=== PATIENT | male | born 1970 | race Caucasian/White ===

== ENCOUNTER 2016-11-14 06:50 | Emergency (ER) | payer OTHER, MEDICARE ==
[~2016-11-14] VITALS: Ht 177.8 cm; Wt 122.5 kg
[~2016-11-14 06:50] MED LIST: BACTRIM DS 8001 TAB PO; CEPHALEXIN500 MG PO; CLONIDINE0.1 MG PO; HYDROCODONE/ACE1 TA1 PO; MEDROL DOSEPAK1 PAC PO; PROAIR HFA0.09 MG/Ac INH; ROBITUSSIN W/CO10 ML PO
[2016-11-14] MEDS ORDERED: AMLODIPINE-BEN1 EAC3 PO (07:41)
[2016-11-14] MEDS ORDERED: METFORMIN HCL500 M4 PO (07:42)
--- NOTE | 2016-11-14 07:50 | RADIOLOGY REPORT ---
EXAMINATION: RADIOGRAPHS OF THE LEFT ANKLE AND LEFT FOOT. CLINICAL INFORMATION: Evaluate for fracture. COMPARISON: No relevant prior imaging is available. TECHNIQUE: 3 views of the left ankle were obtained. 3 views of the left foot were obtained. FINDINGS: There is an acute oblique fracture through the distal left fibular metaphysis and mild associated soft tissue swelling. The medial malleolus is grossly intact. The joint space on the ankle mortise view is symmetric. There is a small joint effusion. Mild spurring at the Achilles insertion on the calcaneal tuberosity. Bones of midfoot and the distal foot are intact. IMPRESSION: There is an acute oblique fracture through the distal left fibular metaphysis consistent with an eversion mechanism of injury. No dislocation.
--- NOTE | 2016-11-14 08:27 | ED GENERAL ADULT ---
See Addendum History of Present Illness General Chief Complaint: Foot or Ankle Injury Stated Complaint: LEFT ANKLE INJURY, FELL ON ICE Source: patient Exam Limitations: no limitations Vital Signs & Intake/Output Vital Signs & Intake/Output Vital Signs Date Time Temp Pulse Resp B/P Pulse O2 O2 Flow FiO2 Ox Delivery Rate 11/14 0854 97.6 98 20 126/84 98 Room Air 11/14 0745 Room Air Room Air 11/14 0702 97.5 104 20 123/83 98 Room Air Room Air Allergies Coded Allergies: NO KNOWN ALLERGIES (11/14/16) Reconcile Medications Albuterol Sulfate (Proair Hfa) 0.09 MG/Actuation XIMENA 1 PUFF INH 4 TIMES/DAY PRN DYSPNEA Amlodipine Besylate/Benazepril (Amlodipine-Benazepril 5-10 MG) 5 MG-10 MG CAPSULE 1 CAP PO DAILY BP (Reported) Ibuprofen 600 MG TABLET 1 TAB PO TID PRN PAIN with food Metformin HCl (Metformin HCl ER) 500 MG TAB.ER.24H 1 TAB PO BID DM (Reported) Oxycodone HCl/Acetaminophen (Percocet 5-325 MG Tablet) 5 MG-325 MG TABLET 1 TAB PO BID PRN PAIN Triage Note: PT TO ED S/P FALL ON ICE ON STAIRS LAST NIGHT, C/O LEFT FOOT AND ANKLE PAIN. PT TOOK ALEVE JUST PRIOR TO COMING TO ED. Triage Nurses Notes Reviewed? yes Onset: Abrupt Duration: day(s): Timing: recent history HPI: 11/14/16 7:30 AM 46-year-old man presents to the emergency department complaining of left ankle pain. The patient states that last night he slipped on the ice and injured his left ankle. He denies other significant complaints. The onset of the symptoms was abrupt, the duration was approximately 12 hours ago, the severity was significant as his symptoms required him to come to the emergency department for care. He denies any significant past medical history. No head trauma. No neck pain. On physical exam he does have swelling and tenderness to the left ankle. There is specific tenderness in the left lateral malleolus. There is no ligament instability. Capillary refill is excellent in the left foot. He has a palpable left dorsalis pedis pulse. There is no ligament instability. The onset of the symptoms was abrupt, the duration is 12 hours, the severity was significant as his symptoms required him to come to the emergency department for care. In the emergency department an x-ray revealed a distal fibula fracture. He was splinted by the PA. He will be given crutches and will follow-up with orthopedist this week. Past History Travel History Traveled to [place] past 21 day No Medical History Any Pertinent Medical History? 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 No Review of Systems Review of Systems Constitutional: Denies: fever. EENTM: Reports: no symptoms. Respiratory: Reports: no symptoms. Cardiovascular: Reports: no symptoms. GI: Reports: no symptoms. Genitourinary: Reports: no symptoms. Musculoskeletal: Reports: joint pain. Skin: Reports: no symptoms. Neurological/Psychological: Reports: no symptoms. Hematologic/Endocrine: Reports: no symptoms. Physical Exam Physical Exam General Appearance: well developed/nourished, alert, awake, anxious, mild distress Head: atraumatic, normal appearance Eyes: Bilateral: normal appearance, PERRL, EOMI. Ears, Nose, Throat: normal pharynx Neck: normal inspection, supple Respiratory: normal breath sounds, chest non-tender, no respiratory distress Cardiovascular: regular rate/rhythm Peripheral Pulses: 4+ tibialis posterior (L) Back: normal range of motion Extremities: swelling, tenderness Neurologic/Psych: no motor/sensory deficits, awake, oriented x 3 Skin: intact, normal color, warm/dry Comments: Physical exam was significant for left ankle swelling no ligament instability. He was placed in a posterior splint by the ED PA. He will be nonweightbearing and follow-up with orthopedics. Core Measures ACS in differential dx? No CVA/TIA Diagnosis: No Severe Sepsis Present: No Septic Shock Present: No Progress Differential Diagnoses I considered the following diagnoses in my evaluation of the patient: [Ankle fracture, ankle sprain, other occult injuries,] Plan of Care: Orders Procedure Date/time Status Durable Medical Equipment 02/14 0838 Active Initial ED EKG: none Departure Departure Disposition: HOME OR SELF CARE Condition: Stable Clinical Impression Primary Impression: Ankle fracture Referrals: SHELBY NGUYEN,WILLIE Wong (PCP/Family) Departure Forms: Customer Survey General Discharge Information Prescriptions: Current Visit Scripts Oxycodone HCl/Acetaminophen (Percocet 5-325 MG Tablet) 1 TAB PO BID PRN PAIN #10 TAB Ibuprofen 1 TAB PO TID PRN PAIN #20 TAB with food Critical Care Note Critical Care Note Critical Care Time: 30-74 min
[2016-11-14] MEDS ORDERED: PERCOCET 5-3251 EACH PO (08:31)
[2016-11-14] MEDS ORDERED: IBUPROFEN600 M1 PO (08:33)
[2016-11-14 08:54] VITALS: BP 126/84
[2017-01-23] MEDS ORDERED: AMLODIPINE-BEN1 EAC3 PO (09:46)
== END 2016-11-14 08:55 ==
LOC: ERH 06:50
DX: S82.402A Unspecified fracture of shaft of left fibula, initial encounter for closed fracture (principal); W00.0XXA Fall on same level due to ice and snow, initial encounter; Y92.9 Unspecified place or not applicable; Y93.9 Activity, unspecified
CPT/HCPCS: 73610-LT; 73630-LT

== ENCOUNTER → 2017-01-24 | Day surgery (SDC) | payer OTHER, MEDICARE ==
[~2017-01-24] VITALS: Ht 177.8 cm; Wt 122.5 kg
[~2017-01-24] MED LIST changes: +AMLODIPINE-BEN1 EAC3 PO; +CEFTRIAXONE2 G2 IV; +DILAUDID2 M1 PO; +IBUPROFEN600 M1 PO; +METFORMIN HCL500 M4 PO; +MS CONTIN15 M2 PO; +OXACILLIN SODIUM2 G1 IV; +PERCOCET 5-3251 EACH PO
--- NOTE | 2017-01-24 15:16 | Operative Report ---
Operative/Inv Procedure Report Surgery Date: 01/24/17 Name of Procedure: Removal of implant deep left ankle Irrigation debridement left ankle Pre-Operative Diagnosis: Retained hardware left ankle Nonhealing wound left ankle Post-Operative Diagnosis: Same Estimated Blood Loss: less than 50ml Surgeon/Heavy Equipment Operator/Paver: DAIJA RODRIGUEZ MD Anesthesia: laryngeal mask airway IV Fluids: See anesthesia record Drains: None Specimens: Bone to pathology and microbiology from the fibula Microbiology: Fibular bone left Tourniquet: 45 minutes Complications: None Condition: Stable Operative Indication: Patient's a 46-year-old male who underwent open reduction internal fixation of his left ankle 3 months ago. He presented to the office with a stitch abscess which was removed a few weeks ago. Continued to have minimal drainage from the area. He was complaining of other suture abscesses spitting out so he was taken to operating room for removal of his implants and irrigation debridement. Operative/Procedure Note Note: Once informed consent was obtained and the correct limb was identified the patient brought to operative room placed on table in the supine position. After administration of general endotracheal anesthesia patient had a thigh tourniquet placed and left lower 70 is prepped and draped usual sterile fashion. To begin the procedures the incision from the previous surgery was used and sharp dissection was carried down to skin and subcutaneous tissue. The fibula was isolated and the plate was identified. All screws removed from the fibular plate and the plate and screws removed passed off as specimen. The bone was then scraped with curet to remove any debris. The bone seemed healthy with no signs of a infection. There were no abscesses present. There was no purulence. All remaining Vicryl sutures removed. The wound was then pulse lavaged. Final curetting was done and bone was passed off as specimen for pathology and microbiology samples. Once you're done irrigating the wound the incision was closed with #2 nylon and 2-0 nylon interrupted sutures. A sterile dressing was applied and the patient was awakened and taken recovery room in stable condition.
== END ==
LOC: STS 02:26 → IIU 07:00 → EDSTATUS 07:00 → STS 07:00
DX: T84.89XA Other specified complication of internal orthopedic prosthetic devices, implants and grafts, initial encounter (principal); E11.9 Type 2 diabetes mellitus without complications; Z79.84 Long term (current) use of oral hypoglycemic drugs; I10 Essential (primary) hypertension; E78.5 Hyperlipidemia, unspecified; F17.200 Nicotine dependence, unspecified, uncomplicated; E66.9 Obesity, unspecified
CPT/HCPCS: 87070; 87075; 87184; 87147; 88307; J0131; J0690; J1100; J1885; J2250; J2405

== ENCOUNTER 2017-01-27 08:51 | Emergency (ER) | payer OTHER, MEDICARE ==
[~2017-01-27] VITALS: Ht 177.8 cm; Wt 122.5 kg
[~2017-01-27 08:51] MED LIST changes: -CEFTRIAXONE2 G2 IV; -DILAUDID2 M1 PO; -MS CONTIN15 M2 PO; -OXACILLIN SODIUM2 G1 IV
[2017-01-27 08:57] VITALS: BP 159/91
--- NOTE | 2017-01-27 09:19 | ED GENERAL ADULT ---
History of Present Illness General Chief Complaint: Suture Removal/Wound Recheck Stated Complaint: WOUND CHECK Source: patient, family, old records Exam Limitations: no limitations Vital Signs & Intake/Output Vital Signs & Intake/Output Vital Signs Date Time Temp Pulse Resp B/P B/P Pulse O2 O2 Flow FiO2 Mean Ox Delivery Rate 01/27 0857 97.0 100 20 159/91 98 Room Air Allergies Coded Allergies: NO KNOWN ALLERGIES (11/14/16) Reconcile Medications Amlodipine Besylate/Benazepril (Amlodipine-Benazepril 5-10 MG) 5 MG-10 MG CAPSULE 1 CAP PO DAILY HTN (Reported) Metformin HCl (Metformin HCl ER) 500 MG TAB.ER.24H 1 TAB PO BID DM (Reported) Oxycodone HCl/Acetaminophen (Percocet 5-325 MG Tablet) 5 MG-325 MG TABLET 1-2 TAB PO Q6H PRN PAIN Triage Note: HAD SURGERY HERE SUNDAY BY DR NGUYEN TO REMOVE PLATE IN ANKLE. STATES HE THINKS HE POPPED A STITCH. NOTICING A LOT OF BLOOD ON BANDAGE WELL PAIN. STATES HE HASN'T SLEPT D/T PAIN. STATES DIDN'T GET RX FOR PAIN MEDS Triage Nurses Notes Reviewed? yes HPI: Patient is a 46 year old male post op from 01/24/17, status post removal of hardware to his left ankle, presents complaining of bleeding from his surgical wound and pain to the area. Patient reports throbbing is severe, worsens with palpation. Patient has been taking Aleve with minimal improvement. Patient was placed on Keflex yesterday for a staph infection from cultures obtained in the OR. Patient was concerned that he pulled the stitches out from where the orthopedic boot was rubbing against the wound. Patient reports that there was redness around the wound prior to surgery, that he believes has been improving. Patient denies fevers, chills, nausea, vomiting. (MARJORIE MILLER,CONNOR) Past History Travel History Traveled to [place] past 21 day No Medical History Any Pertinent Medical History? 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 No (CONNOR WESTON) Review of Systems Review of Systems Constitutional: Reports: malaise (has not slept in 2 days). Denies: chills, fever. EENTM: Reports: no symptoms. Respiratory: Denies: cough, short of breath. Cardiovascular: Denies: chest pain. GI: Denies: nausea, vomiting. Genitourinary: Reports: no symptoms. Musculoskeletal: Reports: joint pain (left ankle). Skin: Reports: see HPI. Neurological/Psychological: Denies: numbness. Hematologic/Endocrine: Reports: bleeding (from surgical wound). Immunologic/Allergic: Denies: splenectomy. (CONNOR WESTON) Physical Exam Physical Exam General Appearance: alert, awake Head: atraumatic, normal appearance Eyes: Bilateral: normal appearance, PERRL, EOMI. Ears, Nose, Throat: hearing grossly normal Neck: normal inspection, full range of motion Respiratory: no respiratory distress Peripheral Pulses: 2+ dorsalis pedis (L) Back: normal range of motion Extremities: 13 cm surgical wound to left lateral distal leg and over the lateral malleolus. Sutures intact, no wound dehiscence. Mild serosanguinous drainage from the wound. 3x3 cm of light erythema extending from the proximal portion of the wound medially. Neurologic/Psych: no motor/sensory deficits, awake, alert, oriented x 3 Skin: see extremities exam Core Measures ACS in differential dx? No CVA/TIA Diagnosis: No Severe Sepsis Present: No Septic Shock Present: No (CONNOR WESTON) Progress Differential Diagnoses I considered the following diagnoses in my evaluation of the patient: wound dehiscence, cellulitis, osteomyelitis, sepsis, post-operative pain, seroma Plan of Care: Orders Procedure Date/time Status FingerStick- Glucose 01/27 0910 Active 0910: Patient declined pain medication on initial exam. Surgical cultures and pathology results reviewed. Growth of MSSA, and path report shows signs of osteomyelitis. [facility], covering for jt Romero to discuss. Discussed with Dr. Shah. 0945: Patient continues to decline pain medication. 55: Discussed with Dr. Sebastian: can have patient continue oral antibiotics and have him follow up in the office early next week. Disposition discussed with patient. Patient comfortable with plan. Patient requesting prescription for pain medication. Patient required detox from pain medication a few years ago due to being on significant doses due to chronic pain. This was discussed with the patient. Will provide patient with presciption for a couple days of pain medication. (CONNOR WESTON) Initial ED EKG: none (CONNOR WESTON) Departure Departure Time of Disposition: 956 Disposition: HOME OR SELF CARE Condition: Stable Clinical Impression Primary Impression: Encounter for wound re-check Secondary Impressions: Post-operative pain Referrals: SHELBY NGUYEN,WILLIE Wong (PCP/Family) JENNIFER NGUYEN,DAIJA Barrera Additional Instructions: Elevate your left foot as much as possible. Change the dressing daily. Continue taking the antibiotics as previously directed. Follow up with Dr. Nguyen on Sunday or Sunday for recheck. Call sunday for appointment. Return to the ER if redness spreading, fevers, or worsening of symptoms. Departure Forms: Customer Survey General Discharge Information Prescriptions: Current Visit Scripts Oxycodone HCl/Acetaminophen (Percocet 5-325 MG Tablet) 1-2 TAB PO Q6H PRN PAIN #12 TAB (CONNOR WESTON) PA/COLD TYPE ARTIST Co-Sign Statement Statement: ED Attending supervision documentation- [] I saw and evaluated the patient. I have also reviewed all the pertinent lab results and diagnostic results. I agree with the findings and the plan of care as documented in the PA's/COLD TYPE ARTIST's documentation. [X] I have reviewed the ED Record and agree with the PA's/COLD TYPE ARTIST's documentation. [] Additions or exceptions (if any) to the PAs/COLD TYPE ARTIST's note and plan are summarized below: [] (ALLIE NGUYEN,GODFREY Rios) Critical Care Note Critical Care Note Critical Care Time: non-applicable (CONNOR WESTON)
[2017-01-27] MEDS ORDERED: PERCOCET 5-3251 EACH PO (09:59)
== END 2017-01-27 10:11 ==
LOC: ERH 08:51
DX: Z48.01 Encounter for change or removal of surgical wound dressing (principal)
CPT/HCPCS: 99281

== ENCOUNTER 2017-01-29 12:00 | Inpatient (IN) | payer OTHER, MEDICARE ==
[~2017-01-29] VITALS: Ht 177.8 cm; Wt 121.6 kg
--- NOTE | 2017-01-29 12:07 | NUR ---
PT SENT IN BY DR. GUZMAN FOR SURGERY TO LEFT LOWER EXT. PT STATES HE HAS A STAFF INFECTION THAT IS NOT HEALING.
--- NOTE | 2017-01-29 12:49 | ED GENERAL ADULT ---
History of Present Illness General Chief Complaint: General Adult Stated Complaint: SENT IN BY ORTHO FOR SURGERY Source: patient, family, old records Exam Limitations: no limitations Vital Signs & Intake/Output Vital Signs & Intake/Output Vital Signs Date Time Temp Pulse Resp B/P B/P Pulse O2 O2 Flow FiO2 Mean Ox Delivery Rate 05 1003 152/90 05/ 0851 98.4 91 18 164/100 97 Room Air 01/30 0843 80 152/80 05/ 0613 98.1 91 18 160/72 97 Room Air 01/30 0113 97.9 90 18 150/90 96 Room Air 01/29 2114 97.5 91 18 134/77 94 Room Air 01/29 1704 98.1 88 18 136/70 98 Room Air 01/29 1542 97.2 82 18 140/66 98 Room Air 01/29 1426 86 20 132/77 95 Room Air 01/29 1208 96.9 92 16 154/79 96 Room Air ED Intake and Output 01/30 0000 01/29 1200 Intake Total 1555 Output Total 450 Balance 1105 Intake, IV 1075 Intake, Oral 480 Output, Urine 450 Patient 270 lb Weight Weight Reported by Patient Measurement Method Allergies Coded Allergies: NO KNOWN ALLERGIES (11/14/16) Reconcile Medications Amlodipine Besylate/Benazepril (Amlodipine-Benazepril 5-10 MG) 5 MG-10 MG CAPSULE 1 CAP PO DAILY HTN (Reported) Metformin HCl (Metformin HCl ER) 500 MG TAB.ER.24H 1 TAB PO BID DM (Reported) Oxycodone HCl/Acetaminophen (Percocet 5-325 MG Tablet) 5 MG-325 MG TABLET 1-2 TAB PO Q6H PRN PAIN Triage Note: PT SENT IN BY DR. GUZMAN FOR SURGERY TO LEFT LOWER EXT. PT STATES HE HAS A STAFF INFECTION THAT IS NOT HEALING. Triage Nurses Notes Reviewed? yes HPI: Patient is a 46 year old male sent in by his orthopedist for worsening infection to his left ankle. Patient had surgery to remove hardware from his left distal fibula last week. Surgical cultures showed a staph infection. Patient has been taking Kelfex since Sunday, but reports infection is worsening. Pain is severe, worsens with palpation. Redness gradually spreading over the past 3-4 days. Patient saw his orthopedist this morning and was referred to the ED for further evaluation and possible surgery. Patient last ate at 1000 today. Positive drainage from the wound. Denies fevers, chills, nausea, vomiting. (CONNOR WESTON) Past History Travel History Traveled to [place] past 21 day No Medical History Any Pertinent Medical History? 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 No (CONNOR WESTON) Review of Systems Review of Systems Constitutional: Denies: chills, fever. EENTM: Reports: no symptoms. Respiratory: Denies: cough, short of breath. Cardiovascular: Denies: chest pain. GI: Denies: abdominal pain, nausea, vomiting. Genitourinary: Reports: no symptoms. Musculoskeletal: Reports: see HPI, back pain (chronic), neck pain (chronic). Skin: Reports: see HPI. Neurological/Psychological: Denies: numbness, paresthesia. Hematologic/Endocrine: Denies: bruising. Immunologic/Allergic: Denies: splenectomy. (CONNOR WESTON) Physical Exam Physical Exam General Appearance: alert, awake Head: atraumatic, normal appearance Eyes: Bilateral: normal appearance. Ears, Nose, Throat: hearing grossly normal Neck: normal inspection, supple, full range of motion Respiratory: normal breath sounds, chest non-tender, no respiratory distress, lungs clear Cardiovascular: regular rate/rhythm Peripheral Pulses: 2+ tibialis posterior (L), 2+ dorsalis pedis (L) Gastrointestinal: soft, non-tender Back: normal inspection, normal range of motion Extremities: 13 cm surgical wound with sutures in place left distal leg laterally. Small amount of serosanguinous drainage and small amount of purulent drainage from the wound. 5-6 cm of erythema extending from the ssuperior portion of the wound with warmth and tenderness. Neurologic/Psych: no motor/sensory deficits, awake, alert, oriented x 3 Skin: see extremities exam Core Measures ACS in differential dx? No CVA/TIA Diagnosis: No Severe Sepsis Present: No Septic Shock Present: No (MARJORIE MILLER,CONONR) Progress Differential Diagnoses I considered the following diagnoses in my evaluation of the patient: Cellulitis , osteomyelitis, retained foreign body Plan of Care: Orders Procedure Date/time Status Consistent Carbohydrate 3 01/30 L Active Consistent Carbohydrate 1 01/30 B Complete Nursing Misc 01/30 0146 Complete Periph. Inserted Central Cath 01/30 UNK Active Consistent Carbohydrate 1 01/29 D Complete NUTRITIONAL CONSULT 01/29 2138 Active Vital Signs 01/29 2126 Active Teach/Educate 01/29 2126 Active Pain Treatment and Response 01/29 2126 Active Nutritional Intake, Monitor 01/29 2126 Active Isolation 01/29 2126 Active Intake & Output 01/29 2126 Active Patient Care Conference 01/29 2126 Active Activity/Ambulation 01/29 2126 Active EXTREMETIES OR SPEC 01/29 1850 Active Pathway - chart 01/29 1410 Active Patient Data 01/29 1410 Active Vital Signs 01/29 1410 Complete Procedure Prep 01/29 1410 Complete Activity/Ambulation 01/29 1410 Complete Code Status 01/29 1410 Active Intake & Output 01/29 1338 Active ED Holding Orders 01/29 1334 Active Vital Signs 01/29 1334 Active Code Status 01/29 1334 Complete Admit to inpatient 01/29 1333 Active FingerStick- Glucose 01/29 1258 Complete BLOOD CULTURE 01/29 1257 Active PARTIAL THROMBOPLASTIN TIME 01/29 1257 Complete PROTHROMBIN TIME 01/29 1257 Complete COMPREHENSIVE METABOLIC PANEL 01/29 1257 Complete CBC WITHOUT DIFFERENTIAL 01/29 1257 Complete EKG 01/29 1257 Active TYPE & SCREEN (NOT X-MATCH) 01/29 1257 Complete PT Evaluate & Treat 01/29 UNK Active Wound Care/Dressing 01/29 UNK Active FingerStick- Glucose 01/29 UNK Complete FingerStick- Glucose 01/29 UNK Active Activity/Ambulation 01/29 UNK Active Diet Message 01/29 UNK Active CASE MANAGEMENT CONSULT 01/29 UNK Active Current Medications Sig/Ban Start time Last Medication Dose Stop Time Status Admin Amlodipine Besylate 5 MG DAILY 01/30 1000 AC 01/30 (Norvasc) 0843 Lisinopril 10 MG DAILY 01/30 1000 CAN (Prinivil) Insulin Human Regular 0 TIDAC/HS 01/30 0800 AC 01/30 (NovoLIN R) 0843 Oxacillin Sodium 2,000 MG Q4 01/29 1800 AC 01/30 (Oxacillin 2000MG 1029 Inj) Sodium Chloride 100 ML (Normal Saline 0.9%) Dextrose/Sodium 1,000 ML 100 MLS/HR 01/29 1415 AC 01/29 Chloride 2301 (D5W-1/2 Normal Saline 1000ML) Hydromorphone HCl 2 MG Q3P PRN 01/29 141 AC 01/30 (Dilaudid) 0844 Hydromorphone HCl 1 MG Q3P PRN 01/29 1415 AC 01/29 (Dilaudid) 2310 Laboratory Tests 01/29/17 1315: Anion Gap 11, Estimated GFR > 60, BUN/Creatinine Ratio 21.3, Glucose 223 H, Calcium 9.1, Total Bilirubin 0.5, AST 18, ALT 33, Alkaline Phosphatase 61, Total Protein 6.1 L, Albumin 3.7, Globulin 2.4, Albumin/Globulin Ratio 1.5, PT 11.3, INR 1.08, APTT 29, CBC w Diff NO MAN DIFF REQ, RBC 5.06, MCV 92.1, MCH 32.2 H, RDW 13.3, MPV 8.4, Gran % 67.9, Lymphocytes % 23.9, Monocytes % 6.3, Eosinophils % 1.6, Basophils % 0.3, Absolute Granulocytes 5.6, Absolute Lymphocytes 2.0, Absolute Monocytes 0.5, Absolute Eosinophils 0.1, Absolute Basophils 0, PUBS MCHC 34.9 Microbiology 01/29 1850 EXTREMITIE: Culture & Sensitivity - RECD 01/29 1850 EXTREMITIE: Gram Stain - RECD 01/29 1850 EXTREMITIE: Gross Specimen Examination - RES STAPH AUREUS 01/29 1850 EXTREMITIE: Gram Stain - RES 01/29 1352 BLOOD: Blood Culture - RECD 01/29 131 BLOOD: Blood Culture - RECD Previous records reviewed. OR cultures showed osteomyelitis. Symptoms worsening despite Keflex. 1320: Discussed with surgical PAUL Rouse: she had been contacted by Dr. Nguyen; patient to be admitted, start on oxacillin IV and plan for patient to go to OR (CONNOR WESTON) Initial ED EKG: normal axis, normal intervals, normal p-waves, normal QRS complex, normal sinus rhythm, no ST T wave changes Prior EKG: unchanged (CONNOR WESTON) Departure Departure Disposition: STILL A PATIENT Condition: Stable Clinical Impression Primary Impression: Osteomyelitis Referrals: WILLIE RYAN MD (PCP/Family) Departure Forms: Customer Survey General Discharge Information Admission Note Spoke With: JENNIFER NGUYEN,DAIJA Barrera Documentation of Exam: Documentation of any treatments & extenuating circumstances including Concerns Regarding Discharge (functional status, medication knowledge or non-compliance, living conditions, etc.) that warrant an admission rather than observation: IV antibiotics, OR intervention. Management of diabetes and patient's comorbid conditions. (CONNOR WESTON) PA/ELEVATOR CONSTRUCTOR HYDRAULIC Co-Sign Statement Statement: ED Attending supervision documentation- [] I saw and evaluated the patient. I have also reviewed all the pertinent lab results and diagnostic results. I agree with the findings and the plan of care as documented in the PA's/ELEVATOR CONSTRUCTOR HYDRAULIC's documentation. [X] I have reviewed the ED Record and agree with the PA's/ELEVATOR CONSTRUCTOR HYDRAULIC's documentation. [] Additions or exceptions (if any) to the PAs/ELEVATOR CONSTRUCTOR HYDRAULIC's note and plan are summarized below: [] (ANNETTE LAGOS DO) Critical Care Note Critical Care Note Critical Care Time: non-applicable (CONNOR WESTON)
--- NOTE | 2017-01-29 13:14 | NUR ---
LABS DRAWN AND SENT BY THIS MST BLUE, SST X 2, LAV X 2, PINK, BALTAZAR
--- NOTE | 2017-01-29 13:28 | NUR ---
ASSUMED CARE, PT AWAKE ALERT AND ORIENTED, STATES THAT 2 MONTHS AGO HE HAD SURGERY ON HIS LLE AFTER HE FELL ON ICE, STATES THAT HE JUST HAS BEEN HAVING PROBLEMS SINCE. PT COMPLAINS OF FREQUENT INFECTIONS. PT WAS EVALUATED BY HIS ORTHOPEDIC DR RODRIGUEZ AND TOLD TO COME TO ER AND THAT HE WILL GO TO THE OR AROUND 1800. IV PLACED AND FLUIDS INFUSING AT 125ML/HR, AND MEDICATED WITH DILAUDID FOR 8/10 LLE PAIN. PT AWARE THAT AFTER HIS PAIN IS UNDER CONTROL WE WILL ASSIST HIM TO CHANGE INTO EDWARD SO THAT HE IS READY WHEN THEY CALL FOR HIM TO GO TO THE OR. PT IS OK WITH THIS. LIGHTS DIMMED FOR COMFORT AND LLE ELEVATED
[2017-01-29 13:30] LABS: ABSOLUTE BASOPHIL COUNT 0 /CUMM (0.0-0.2); ABSOLUTE EOSINOPHIL COUNT 0.1 /CUMM (0.0-0.7); ABSOLUTE GRANULOCYTE CT 5.6 /CUMM (1.4-6.5); ABSOLUTE MONOCYTE COUNT 0.5 /CUMM (0.10-0.60); BASOPHIL % 0.3 % (0.0-2.0); EOSINOPHIL % 1.6 % (0-5); GRANULOCYTE % 67.9 % (42.2-75.2); HEMATOCRIT 46.6 % (42-52); MEAN CORPUSCULAR HGB 32.2 PG (27.0-31.0); MEAN CORPUSCULAR HGB CONC 34.9 G/DL (33.0-37.0); MEAN CORPUSCULAR VOLUME 92.1 FL (80.0-94.0); MEAN PLATELET VOLUME 8.4 FL (7.4-10.4); PLATELET COUNT 165 /CUMM (130-400); RBC DISTRIBUTION WIDTH 13.3 % (11.5-14.5); RED BLOOD CELL CT 5.06 /CUMM (4.70-6.10); WHITE BLOOD CELL COUNT 8.2 /CUMM (4.8-10.8)
[2017-01-29 13:43] LABS: PT 11.3 SEC (9.4-12.5); PTT 29 SEC (25-37)
--- NOTE | 2017-01-29 13:55 | NUR ---
BC X 2 DRAWN AND SENT PRIOR TO ABT INFUSING
--- NOTE | 2017-01-29 14:03 | NUR ---
PTS SUHA WOULD LIKE TO BE CALLED WITH ANY UPDATES [phone]
--- NOTE | 2017-01-29 14:14 | Admission Core Measures ---
Admission Lab Results I reviewed the following labs: Laboratory Tests 01/29 1315 Chemistry Sodium (137 - 145 mmol/L) 138 Potassium (3.5 - 5.1 mmol/L) 4.3 Chloride (98 - 107 mmol/L) 103 Carbon Dioxide (22 - 30 mmol/L) 25 Anion Gap (5 - 16) 11 BUN (9 - 20 mg/dL) 17 Creatinine (0.7 - 1.2 mg/dL) 0.8 Estimated GFR (>60 ml/min) > 60 BUN/Creatinine Ratio (7 - 25 %) 21.3 Glucose (65 - 99 mg/dL) 223 H Calcium (8.4 - 10.2 mg/dL) 9.1 Total Bilirubin (0.2 - 1.3 mg/dL) 0.5 AST (17 - 59 U/L) 18 ALT (21 - 72 U/L) 33 Alkaline Phosphatase (< 127 U/L) 61 Total Protein (6.3 - 8.2 g/dL) 6.1 L Albumin (3.5 - 5.0 g/dL) 3.7 Globulin (1.9 - 4.2 gm/dL) 2.4 Albumin/Globulin Ratio (1.1 - 2.2 %) 1.5 Coagulation PT (9.4 - 12.5 SEC) 11.3 INR (0.90 - 1.17) 1.08 APTT (25 - 37 SEC) 29 Hematology CBC w Diff NO MAN DIFF REQ WBC (4.8 - 10.8 /CUMM) 8.2 RBC (4.70 - 6.10 /CUMM) 5.06 Hgb (14.0 - 18.0 G/DL) 16.3 Hct (42 - 52 %) 46.6 MCV (80.0 - 94.0 FL) 92.1 MCH (27.0 - 31.0 PG) 32.2 H RDW (11.5 - 14.5 %) 13.3 Plt Count (130 - 400 /CUMM) 165 MPV (7.4 - 10.4 FL) 8.4 Gran % (42.2 - 75.2 %) 67.9 Lymphocytes % (20.5 - 51.1 %) 23.9 Monocytes % (1.7 - 9.3 %) 6.3 Eosinophils % (0 - 5 %) 1.6 Basophils % (0.0 - 2.0 %) 0.3 Absolute Granulocytes (1.4 - 6.5 /CUMM) 5.6 Absolute Lymphocytes (1.2 - 3.4 /CUMM) 2.0 Absolute Monocytes (0.10 - 0.60 /CUMM) 0.5 Absolute Eosinophils (0.0 - 0.7 /CUMM) 0.1 Absolute Basophils (0.0 - 0.2 /CUMM) 0 PUBS MCHC (33.0 - 37.0 G/DL) 34.9 Admission Meds I reviewed the following Meds: Current Medications Sig/Ban Start time Last Medication Dose Stop Time Status Admin Dextrose/Sodium 1,000 ML 100 MLS/HR 01/29 1415 UNVr Chloride (D5W-1/2 Normal Saline 1000ML) Hydromorphone HCl 2 MG Q3P PRN 01/29 1415 UNVr (Dilaudid) Hydromorphone HCl 1 MG Q3P PRN 01/29 1415 UNVr (Dilaudid) Oxacillin Sodium 2,000 MG Q4 01/29 1800 UNVr (Oxacillin 2000MG Inj) Sodium Chloride 100 ML (Normal Saline 0.9%) Sodium Chloride 1,000 ML .Q8H / 1300 AC 05/ (Normal Saline 0.9%) 1318 Acute Coronary Syndrome Inclusion Criteria ACS Diagnosis No Inpatient Core Measures LDL Reminder: If No, please order W/I first 24hr of stay Congestive Heart Failure Inclusion Criteria CHF Diagnosis No Cerebrovascular accident Inclusion Criteria CVA/TIA Diagnosis No Inpatient Core Measures Bedside Swallow Eval Reminder: If BSE failed, place ST order Antithrombotic Reminder: Order Antithrombotic Medication by end of day 2 Antithrombotic Reminder: Document Reason Antithrombotic Not ordered by end of day 2 AFIB/Flutter Reminder: If Present, add to problem list AFIB/Flutter Reminder: Order Anticoag Medication for pts with AFIB/Flutter Atherosclerosis Reminder: If Present, add to problem list LDL Reminder: If No, please order W/I first 24hr of stay PT Order Reminder: If No, please order Venous thromboembolism Inpatient Core Measures VTE Risk Factors: Age > 40, [facility] prophylaxis d/t Surgical procedure LE No VTE Pharm Prophylaxis d/t Surgical contraindication (PRE OP) Inclusion Criteria - Per Current guidelines, there needs to be overlap - treatment for the first 5 days of Warfarin therapy. - Parenteral Anticoagulation (IV or SC) needs to be - given along with Warfarin therapy. VTE Diagnosis No VTE Type NONE VTE Confirmed by (Test) NONE Problem List As ranked by this Provider includes Assessment & Plan 1. Non-healing wound of lower extremity HOME MEDS Home Med List Amlodipine Besylate/Benazepril (Amlodipine-Benazepril 5-10 MG) 5 MG-10 MG CAPSULE 1 CAP PO DAILY HTN (Reported) Metformin HCl (Metformin HCl ER) 500 MG TAB.ER.24H 1 TAB PO BID DM (Reported) Oxycodone HCl/Acetaminophen (Percocet 5-325 MG Tablet) 5 MG-325 MG TABLET 1-2 TAB PO Q6H PRN PAIN
--- NOTE | 2017-01-29 14:22 | NUR ---
OXACILLING 2 GRAMS INFUSING AT THIS TIME, PT SITTING UP USING URINAL AT THIS TIME. STATES THAT PAIN IS 2/10 TO LLE,
--- NOTE | 2017-01-29 14:28 | History & Physical Pre-Op ---
See Addendum General Information and HPI Source of Information: patient Exam Limitations: no limitations History of Present Illness: 46yo male who had hardware placed in his left ankle in November 2016 secondary to a fracture. Per the patient, the wound never really healed, was open and draining for a while. He has been seen by orthopedic surgery since surgery and on 01/24 was brought to the OR for I&D and hardware removal/washout. At that time, it was noted that the wound looked clean without any purulence. Pt states that over the past two days his pain has increased significantly and he has had increased drainage. He contacted Dr Nguyen who evaluated the wound and felt that he should present to the ED for admission and a further washout in the OR today. Currently pt has no complaints. He last ate at 1000. Allergies/Medications Allergies: Coded Allergies: NO KNOWN ALLERGIES (11/14/16) Home Med list Amlodipine Besylate/Benazepril (Amlodipine-Benazepril 5-10 MG) 5 MG-10 MG CAPSULE 1 CAP PO DAILY HTN (Reported) Metformin HCl (Metformin HCl ER) 500 MG TAB.ER.24H 1 TAB PO BID DM (Reported) Oxycodone HCl/Acetaminophen (Percocet 5-325 MG Tablet) 5 MG-325 MG TABLET 1-2 TAB PO Q6H PRN PAIN Past History Medical History Neurological: NONE EENT: NONE Cardiovascular: hypertension Respiratory: bronchitis Gastrointestinal: NONE Hepatic: NONE Renal: NONE Musculoskeletal: chronic back pain Psychiatric: NONE Endocrine: diabetes Blood Disorders: NONE 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 IADLs Independent: shopping, housework, finances, food prep, telephone, transportation , medication admin. Review of Systems Review of Systems Constitutional: Reports: see HPI. Musculoskeletal: Reports: see HPI. Exam & Diagnostic Data Last 24 Hrs of Vital Signs/I&O Vital Signs Date Time Temp Pulse Resp B/P B/P Pulse O2 O2 Flow FiO2 Mean Ox Delivery Rate 01/29 1208 96.9 92 16 154/79 96 Room Air Intake & Output 01/29 1600 01/29 0800 01/29 0000 Intake Total 1000 Output Total Balance 1000 Intake, IV 1000 Patient 270 lb Weight Weight Reported by Patient Measurement Method Physical Exam: Afebrile, VSS General: alert and oriented times three, frustrated Chest: clear anteriorly bilaterally Abd: soft, good bs Ext: LLE ankle dressed in kerlex - just placed in DR Lloyd office, positive sensate, FROM of toes Assessment/Plan Assessment/Plan: 46yo male with non healing L ankle wound - now pod5 from hardware removal/ washout with increased pain and drainage Plan for OR once available pain management npo/ivf oxacillin ordered As Ranked By This Provider Problem List: 1. Non-healing wound of lower extremity
--- NOTE | 2017-01-29 15:41 | NUR ---
PT AWAKE AND ALERT, PROVIDED WITH A PILLOW AND LIGHTS DIMMED FOR COMFORT, PT AWARE THAT HE WILL NOT BE GOING TO OR INTILL AFTER 1800 AND THAT HE MIGHT GO TO THE FLOOR FIRST
--- NOTE | 2017-01-29 15:45 | NUR ---
PT TO ROOM 206 BED 1
--- NOTE | 2017-01-29 16:20 | NUR ---
FLOOR TO CALL BACK FOR REPORT
--- NOTE | 2017-01-29 16:37 | NUR ---
REPORT CALLED TO FLOOR AND TRANSPORT CALLED. PT COMPLAINED OF 10/10 LLE PAIN AT THIS TIME . PT MEDICATED WITH PRN DILAUDID 2 MG IV PER ORDER. NURSE ON FLOOR AWARE THAT PT WANTS TO WAIT TO CHANGE AT THIS TIME. PREFERS TO STAY IN HIS SHORTS AN T-SHIRT.
--- NOTE | 2017-01-29 17:03 | NUR ---
TRANSPORT CALLED AND STATED THAT THE OR CALLED THEM AND THEY WANT HIM AT 1745 AND THAT THEY WILL COME AND TAKE HIM FROM HERE TO THE OR. PT IS DOING PRE OP SCRUB AT THIS TIME.
[2017-01-29 21:14] VITALS: BP 134/77
--- NOTE | 2017-01-30 00:04 | PN- Orthopedic ---
Subjective Subjective: POSTOP CHECK pain controlled with dilaudid, no oob yet, no cp/sob/n/v Objective Vital Signs and I&Os Vital Signs Date Time Temp Pulse Resp B/P B/P Pulse O2 O2 Flow FiO2 Mean Ox Delivery Rate 01/29 2114 97.5 91 18 134/77 94 Room Air 01/29 1704 98.1 88 18 136/70 98 Room Air 01/29 1542 97.2 82 18 140/66 98 Room Air 01/29 1426 86 20 132/77 95 Room Air 01/29 1208 96.9 92 16 154/79 96 Room Air Intake & Output 01/30 0800 01/30 0000 01/29 1600 01/29 0800 01/29 0000 01/28 1600 Intake Total 1000 Output Total 200 Balance -200 1000 Intake, IV 1000 Output, Urine 200 Patient 270 lb 270 lb Weight Weight Reported by Patient Reported by Patient Measurement Method Physical Exam: gen: nad card: s1s2 rrr pulm: ctab abd: obese soft nt ext: LLE: wvac in place, palp DP, calf soft nt, gross motor/sensate intact, dressing cdi Assessment/Plan Assessment/Plan POD0 sp washout left ankle, stable. prn pain meds oob as tolerated, NWB LLE wv to low suction picc in am, oxacillin per ID (Dr. Nguyen to contact ID in am) will dw attending Core Measures/Miscellaneous Venous Thromboembolism VTE Risk Factors: Age > 40, Surgery VTE Contraindications: No Contraindications VTE Diagnosis: No VTE Type: NONE VTE Confirmed by (Test): NONE Beta Raquel Is Beta Raquel a Home Med? No Antibiotics Is Patient on Antibiotics? Yes
[2017-01-30 01:13] VITALS: BP 150/90
--- NOTE | 2017-01-30 03:20 | NUR ---
LATE ENTRY FOR 01/29/172114 PT ARRIVED TO RM 206 FROM PACU. AOX3. IVF. JG DSG TO LLE WITH WOUND VAC IN PLACE. PT SETTLED INTO ROOM/SURROUNDINGS. CALL BARON IN REACH.
[2017-01-30 06:13] VITALS: BP 160/72
--- NOTE | 2017-01-30 07:12 | PN- Orthopedic ---
See Addendum Subjective Subjective: The patient was seen this morning postoperatively day 1. He reports his pain is under adequate control has no other complaints at the current time. Objective Vital Signs and I&Os Vital Signs Date Time Temp Pulse Resp B/P B/P Pulse O2 O2 Flow FiO2 Mean Ox Delivery Rate 01/30 0613 98.1 91 18 160/72 97 Room Air 01/30 0113 97.9 90 18 150/90 96 Room Air 01/29 2114 97.5 91 18 134/77 94 Room Air 01/29 1704 98.1 88 18 136/70 98 Room Air 01/29 1542 97.2 82 18 140/66 98 Room Air 01/29 1426 86 20 132/77 95 Room Air 01/29 1208 96.9 92 16 154/79 96 Room Air Intake & Output 01/30 0800 01/30 0000 01/29 1600 01/29 0800 01/29 0000 01/28 1600 Intake Total 555 1000 Output Total 500 700 Balance -500 -145 1000 Intake, IV 75 1000 Intake, Oral 480 Output, Urine 500 700 Patient 270 lb 270 lb Weight Weight Reported by Patient Reported by Patient Measurement Method Physical Exam: Gen.: Alert and in obvious distress Skin: Warm and dry Extremities: Bilateral lower extremities are warm without calf tenderness. Gross motor and sensory are intact. Left lower extremity with surgical dressing is clean, dry, and intact. There is a VAC dressing in place holding suction with serosanguineous drainage in the canister Assessment/Plan Assessment/Plan Assessment: 46-year-old male status post I&D/washout of infected left ankle wound postoperative day 1 . The patient is progressing as expected and his pain is under relatively good control. Plan: Out of bed and ambulate with physical therapy patient is nonweightbearing left lower extremity Keep surgical dressing intact with VAC suction Follow-up morning laboratory studies and final or cultures Continue IV antibiotics and follow-up ID recommendations Will order a PICC line to be placed by interventional radiology later today GI and DVT prophylaxis Continue current pain regiment Elevated left lower extremity rest Core Measures/Miscellaneous Venous Thromboembolism VTE Risk Factors: Age > 40, Surgery VTE Contraindications: No Contraindications VTE Diagnosis: No VTE Type: NONE VTE Confirmed by (Test): NONE Beta Raquel Is Beta Raquel a Home Med? No Antibiotics Is Patient on Antibiotics? Yes If Yes: infection
--- NOTE | 2017-01-30 07:44 | Operative Report ---
Operative/Inv Procedure Report Surgery Date: 01/29/17 Name of Procedure: Irrigation and debridement left ankle Application of wound VAC Pre-Operative Diagnosis: Osteomyelitis left ankle Post-Operative Diagnosis: Same Estimated Blood Loss: less than 50ml Surgeon/Emergency Vehicle Technician: JENNIFER NGUYEN,DAIJA Barrera Anesthesia: laryngeal mask airway IV Fluids: See anesthesia record Implants: None Specimens: Soft tissue to microbiology Microbiology: Soft tissue left ankle Complications: None Condition: Table Operative Indication: Patient is a 46-year-old male who underwent irrigation debridement with removal of hardware last Sunday in the operating room. He returned to the office today with complaints of increased pain and drainage from his incision. He was indicated for repeat irrigation debridement of the wound. Informed consent was obtained. Operative/Procedure Note Note: The patient was taken to the operating room placed on table supine position. After administration of general endotracheal anesthesia the patient's left leg was prepped and draped using sterile fashion. To begin the procedure the previous surgical incision was opened and sutures removed. The soft tissue and bone were debrided sharply with curettes and all devitalized tissue was excised. Stable to get bleeding soft tissue and bone by scraping the tissue with the curettes. There are no obvious tracts or pockets of purulence. Once I had adequate debrided the devitalized tissue the wound was pulse lavaged with 3 L of saline. The skin margins were then excised and once we were happy with the debridement a wound VAC was applied to the wound. Once the wound VAC had been sealed and tested the patient was awakened from anesthesia and taken recovery in stable condition.
[2017-01-30 08:51] VITALS: BP 164/100
--- NOTE | 2017-01-30 09:08 | NUR ---
NURSING NOTE: BP CURRENTLY 164/100, PT DENIES TAKING LISINOPRIL AT HOME AND DOESNT WANT TO START UNTIL HE KNOWS WHY ITS ORDERED. KASIA MILLER AWARE, PT JUST RECIVED IV PAIN MEDS AND AMLODIPINE; WILL RECHECK BP IN 1 HOUR. CONT TO MONIOTR.
[2017-01-30 10:03] VITALS: BP 152/90
--- NOTE | 2017-01-30 10:03 | NUR ---
NURSING NOTE: BP 152/90, PA AWARE, NO FURTHER ORDERS AT THIS TIME
--- NOTE | 2017-01-30 10:16 | Cons- Infect Disease ---
General Information and HPI Consulting Request Date of Consult: 01/30/17 Requested By: DAIJA RODRIGUEZ MD Reason for Consult: Surgical site infection status post left ankle ORIF Source of Information: patient History of Present Illness: This is a 46-year-old man with a history of diabetes, status post left ankle ORIF 2 and 1/2 months prior to admission after developing an acute left fibular fracture following trauma, with persistent pain and intermittent drainage since the surgery, given a course of antibiotics with some improvement, but with persistent pain, status post removal of the hardware with irrigation and debridement 5 days prior to admission, with Cefazolin prophylaxis, begun on antibiotics 3 days prior to admission after the OR cultures were positive for Staph aureus, admitted on January 29 for further debridement of the bone because of persistent pain and bloody drainage. On admission he was afebrile. Laboratory data revealed a white blood cell count of 8000, BUN/creatinine 17 and 0.8, glucose 223, with normal liver enzymes, coags normal. He was begun on Oxacillin preoperatively and continued on this postoperatively. He has remained afebrile since admission. At present he does report pain in the left ankle. Allergies/Medications Allergies: Coded Allergies: NO KNOWN ALLERGIES (11/14/16) Home Med List: Amlodipine Besylate/Benazepril (Amlodipine-Benazepril 5-10 MG) 5 MG-10 MG CAPSULE 1 CAP PO DAILY HTN (Reported) Metformin HCl (Metformin HCl ER) 500 MG TAB.ER.24H 1 TAB PO BID DM (Reported) Oxycodone HCl/Acetaminophen (Percocet 5-325 MG Tablet) 5 MG-325 MG TABLET 1-2 TAB PO Q6H PRN PAIN Past History Travel History Traveled to [place] past 21 day No Medical History Blood Transfusion Hx: No Neurological: NONE EENT: NONE Cardiovascular: hypertension, hyperlipidemia Respiratory: bronchitis Gastrointestinal: NONE Hepatic: NONE Renal: NONE Musculoskeletal: chronic back pain Psychiatric: NONE Endocrine: diabetes Blood Disorders: NONE 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 Home Services at Home: None Smoking Status: Current Everyday Smoker ETOH Use: denies use Illicit Drug Use: denies illicit drug use Functional Ability ADLs Independent: dressing, eating, toileting, bathing. IADLs Independent: shopping, housework, finances, food prep, telephone, transportation , medication admin. Review of Systems Review of Systems Constitutional: Denies: chills, fever. All Other Systems: Reviewed and Negative Exam & Diagnostic Data Last 24 Hrs of Vital Signs/I&O Vital Signs Date Time Temp Pulse Resp B/P B/P Pulse O2 O2 Flow FiO2 Mean Ox Delivery Rate 01/30 1003 152/90 01/30 0851 98.4 91 18 164/100 97 Room Air 01/30 0843 80 152/80 01/30 0613 98.1 91 18 160/72 97 Room Air 01/30 0113 97.9 90 18 150/90 96 Room Air 01/29 2114 97.5 91 18 134/77 94 Room Air 01/29 1704 98.1 88 18 136/70 98 Room Air 01/29 1542 97.2 82 18 140/66 98 Room Air 01/29 1426 86 20 132/77 95 Room Air 01/29 1208 96.9 92 16 154/79 96 Room Air Intake & Output 01/30 1600 / 0800 01/30 0000 Intake Total 900 555 Output Total 2400 700 Balance -1500 -145 Intake, IV 900 75 Intake, Oral 480 Output, Urine 2400 700 Patient 268 lb 270 lb Weight Weight Reported by Patient Measurement Method Physical Exam Other Physical Findings: He is awake and alert in no acute distress. He is afebrile. Skin reveals no rash. HEENT exam is negative. Neck is supple with no adenopathy. Lungs are clear. Heart regular rhythm with no murmur. Abdomen is soft, nontender with positive bowel sounds. Back no CVA tenderness. Extremities left ankle dressing intact with wound VAC in place. Neuro is without focality. Last 24 Hours of Lab Results: Laboratory Tests 01/29 1315 Chemistry Sodium (137 - 145 mmol/L) 138 Potassium (3.5 - 5.1 mmol/L) 4.3 Chloride (98 - 107 mmol/L) 103 Carbon Dioxide (22 - 30 mmol/L) 25 Anion Gap (5 - 16) 11 BUN (9 - 20 mg/dL) 17 Creatinine (0.7 - 1.2 mg/dL) 0.8 Estimated GFR (>60 ml/min) > 60 BUN/Creatinine Ratio (7 - 25 %) 21.3 Glucose (65 - 99 mg/dL) 223 H Calcium (8.4 - 10.2 mg/dL) 9.1 Total Bilirubin (0.2 - 1.3 mg/dL) 0.5 AST (17 - 59 U/L) 18 ALT (21 - 72 U/L) 33 Alkaline Phosphatase (< 127 U/L) 61 Total Protein (6.3 - 8.2 g/dL) 6.1 L Albumin (3.5 - 5.0 g/dL) 3.7 Globulin (1.9 - 4.2 gm/dL) 2.4 Albumin/Globulin Ratio (1.1 - 2.2 %) 1.5 Coagulation PT (9.4 - 12.5 SEC) 11.3 INR (0.90 - 1.17) 1.08 APTT (25 - 37 SEC) 29 Hematology CBC w Diff NO MAN DIFF REQ WBC (4.8 - 10.8 /CUMM) 8.2 RBC (4.70 - 6.10 /CUMM) 5.06 Hgb (14.0 - 18.0 G/DL) 16.3 Hct (42 - 52 %) 46.6 MCV (80.0 - 94.0 FL) 92.1 MCH (27.0 - 31.0 PG) 32.2 H RDW (11.5 - 14.5 %) 13.3 Plt Count (130 - 400 /CUMM) 165 MPV (7.4 - 10.4 FL) 8.4 Gran % (42.2 - 75.2 %) 67.9 Lymphocytes % (20.5 - 51.1 %) 23.9 Monocytes % (1.7 - 9.3 %) 6.3 Eosinophils % (0 - 5 %) 1.6 Basophils % (0.0 - 2.0 %) 0.3 Absolute Granulocytes (1.4 - 6.5 /CUMM) 5.6 Absolute Lymphocytes (1.2 - 3.4 /CUMM) 2.0 Absolute Monocytes (0.10 - 0.60 /CUMM) 0.5 Absolute Eosinophils (0.0 - 0.7 /CUMM) 0.1 Absolute Basophils (0.0 - 0.2 /CUMM) 0 PUBS MCHC (33.0 - 37.0 G/DL) 34.9 Last 24 Hours of Rashad Results: OR culture left fibula January 24 positive for Staph aureus sensitive to Oxacillin Blood cultures January 29 negative OR culture left ankle wound January 29 positive for probable Staph aureus Assessment/Plan Assessment/Plan Impression: This is a 46-year-old man with diabetes status post left ankle ORIF 2-1/2 months prior to admission after trauma status post removal of the hardware 5 days prior to admission because of persistent pain and drainage from the wound, with Staph aureus isolated from the OR culture, admitted on January 29 because of persistent pain and bloody drainage for further debridement in the OR, which was performed on the day of admission. He will require a four-week course of IV antibiotics for the Staph aureus surgical site infection. Suggestion: 1. Would obtain a baseline ESR and follow weekly 2. Proceed with placement of a PICC 3. Continue Oxacillin 2 g IV every 4 hours to plan on a four-week course (until February 26) Consult Acknowledgment - Thank you for your consult request.
--- NOTE | 2017-01-30 12:55 | NUR ---
NURSING NOTE: SINGLE LUMEN PICC PLACED TO R ARM BY LOGAN NIGHT MANAGER. PINK WRISTBAND AND DO NOT USE R ARM SIGN ABOVE BED. PCXR DONE TO CONFIRM PLACEMENT, RESULTS PENDING, WILL DC PERIPHERAL IV WHEN RESULTS CONFIRM PLACEMENT, PT DELONTE WELL.
[2017-01-30 13:00] VITALS: BP 160/60
--- NOTE | 2017-01-30 13:46 | RADIOLOGY REPORT ---
EXAMINATION: XR PORTABLE CHEST CLINICAL INFORMATION: PICC line placement. COMPARISON: 12/06/2015. TECHNIQUE: Portable frontal view of the chest was obtained. FINDINGS: The new right PICC line terminates in the distal SVC, near the cavoatrial junction. The lungs appear clear. IMPRESSION: Right PICC line terminates in the SVC near the cavoatrial junction.
--- NOTE | 2017-01-30 14:46 | NUR ---
PHYSICAL THERAPY- CONSULT RECEIVED, CHART REVIEWED. ATTEMPTED TO SEE PT x3 THIS AM, IN W/ OUTSIDE SALES REPRESENTATIVE FOR PICC PLACEMENT. IN PM, PT JUST RETURNED BACK TO BED. WILL FOLLOW APPROPRIATE IN AM.
--- NOTE | 2017-01-30 15:21 | Surgical Discharge Summary ---
See Addendum Visit Information Visit Dates Admission Date: 01/29/17 Discharge Date: 01/31/17 History of Present Illness Chief Complaint: 46yo male who had hardware placed in his left ankle in November 2016 secondary to a fracture. Per the patient, the wound never really healed, was open and draining for a while. He has been seen by orthopedic surgery since surgery and on 01/24 was brought to the OR for I&D and hardware removal/washout. At that time, it was noted that the wound looked clean without any purulence. He then presented to the emergency room after evaluation by orthopedics on 01/29 due to worsening concerns of infection at the ankle wound. 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 Home Who Do You Live With? Family Services at Home: None What is Your Primary Language? Bahamian ETOH Use: denies use [facility] Course Course Attending Physician: JENNIFER NGUYEN,DAIJA Barrera Primary Care Physician: SHELBY NGUYEN,WILLIE Wong Hospital Course: The patient had a irrigation and debridement of the area and placement of wound VAC on 01/[address] Nguyen. He also had a PICC line placed and was evaluated by infectious disease in which they recommended long-term IV antibiotics. His culture grew out Staphylococcus aureus. He is controlled on pain medication, afebrile, vital signs are stable. Wound VAC is placed the left ankle. Complications: None Allergies: Coded Allergies: NO KNOWN ALLERGIES (11/14/16) Disposition Summary Disposition Principal Diagnosis: Hardware infection, left ankle Additional Diagnosis: Status post irrigation and debridement and wound VAC placement left ankle Discharge Disposition: home health services (wound VAC change start Sunday) Discharge Instructions General Discharge Information Code Status: Full Code Patient's Diet: Regular Patient's Activity: Weightbearing as tolerated left lower extremity Follow-Up Instructions/Appts: Follow-up with orthopedist in one week, continue wound VAC, pain medication as needed, continue antibiotics as directed, elevate the leg as much as possible. Medications at Discharge Discharge Medications: Stop taking the following medications: Oxycodone HCl/Acetaminophen (Percocet 5-325 MG Tablet) 5 MG-325 MG TABLET ORAL Q6H as needed for PAIN Qty = 12 Continue taking these medications: Metformin HCl (Metformin HCl ER) 500 MG TAB.ER.24H 1 Tablet ORAL TWICE DAILY Qty = 60 Comments: NOT GIVEN IN HOSPITAL Amlodipine Besylate/Benazepril (Amlodipine-Benazepril 5-10 MG) 5 MG-10 MG CAPSULE 1 Capsule ORAL DAILY Comments: Last Taken: 01/31/17 Time: 0745AM Start taking the following new medications: Hydromorphone HCl (Dilaudid) 2 MG TABLET 1-2 Tablet ORAL EVERY 4-6 HOURS as needed for PAIN Qty = 30 No Refills Comments: PERCOCET GIVEN IN HOSPITAL; LAST DOSE 01/31/17 @1100AM Morphine Sulfate (Ms Contin) 15 MG TABLET.ER 1 Tablet ORAL TWICE DAILY Qty = 15 No Refills Comments: NOT GIVEN IN HOSPITAL Ceftriaxone Sodium (Ceftriaxone) 2 GRAM VIAL 1 VIAL INTRAVEN DAILY Qty = 26 No Refills Comments: Last Taken: 01/31/17 Time: 1030AM
--- NOTE | 2017-01-30 15:24 | Patient Discharge Instructions ---
See Addendum Discharge Instructions General Discharge Information You were seen/treated for: Left ankle wound infection You had these procedures: Irrigation and debridement and wound VAC placement left ankle Watch for these problems: Worsening signs of infection such as redness, swelling, pain, fever, flulike illness Do not soak the wound: Yes No bath, but you may shower: Yes Special Instructions: Weightbearing as tolerated left lower leg Wound VAC changes 2 times per week starting on Sunday Elevate the leg as much as possible Take pain medication as needed IV antibiotics through PICC line as directed weekly ESR Diet Continue normal diet: Yes Activity Full Activity/No Limits: No Activity Self Limited: Yes Activity Limited to: Weight bear as tolerated Acute Coronary Syndrome Inclusion Criteria At DC or during hospital stay patient has or had the following: ACS DIAGNOSIS No Discharge Core Measures Meds if any: Prescribed or Continued at Discharge Meds if any: NOT Prescribed or Continued at Discharge Congestive Heart Failure Inclusion Criteria At DC or during hospital stay patient has or had the following: CHF DIAGNOSIS No Discharge Core Measures Meds if any: Prescribed or Continued at Discharge Meds if any: NOT Prescribed or Continued at Discharge Cerebrovascular accident Inclusion Criteria At DC or during hospital stay patient has or had the following: CVA/TIA Diagnosis No Discharge Core Measures Meds if any: Prescribed or Continued at Discharge Meds if any: NOT Prescribed or Continued at Discharge Venous thromboembolism Inclusion Criteria VTE Diagnosis No VTE Type NONE VTE Confirmed by (Test) NONE Discharge Core Measures - Per Current guidelines, there needs to be overlap - treatment for the first 5 days of Warfarin therapy. - If discharged on Warfarin prior to 5 days of - overlap therapy, the patient will need to be - assessed for post discharge needs including - *Post discharge parental anticoagulation - *Warfarin and/or parental anticoagulation education - *Follow up date to check INR post discharge At least 5 days overlap therapy as Inpatient No Meds if any: Prescribed or Continued at Discharge Note: Overlap Therapy is Warfarin and Anticoagulant Meds if any: NOT Prescribed or Continued at Discharge
[2017-01-30 22:15] VITALS: BP 140/84
[2017-01-31 06:58] VITALS: BP 136/72
[2017-01-31] MEDS ORDERED: MS CONTIN15 M2 PO (07:16)
[2017-01-31] MEDS ORDERED: DILAUDID2 M1 PO (07:16)
[2017-01-31] MEDS ORDERED: OXACILLIN SODIUM2 G1 IV (07:18)
[2017-01-31] MEDS ORDERED: CEFTRIAXONE2 G2 IV (07:36)
--- NOTE | 2017-01-31 07:41 | PN- Orthopedic ---
See Addendum Subjective Subjective: The patient is seen this morning postoperatively day #2. He reports that his pain is more adequately controlled with current pain regiment. He has no complaints at the current time and his be discharged home. Objective Vital Signs and I&Os Vital Signs Date Time Temp Pulse Resp B/P B/P Pulse O2 O2 Flow FiO2 Mean Ox Delivery Rate 01/31 0658 98.2 76 18 136/72 95 Room Air 01/30 2215 98.1 84 20 140/84 95 Room Air 01/30 1300 98.2 91 20 160/60 97 Room Air 01/30 1229 Room Air / 1003 152/90 / 0851 98.4 91 18 164/100 97 Room Air 01/30 0843 80 152/80 Intake & Output 01/31 0800 01/31 0000 01/30 1600 / 0800 01/30 0000 / 1600 Intake Total 800 1000 640 165 9629 Output Total 001 473 3776 700 Balance 450 50 -1500 -145 1000 Intake, IV 100 487 98 8534 Intake, Oral 800 900 480 Number 0 Bowel Movements Output, Urine 783 585 4335 700 Patient 268 lb 270 lb 270 lb Weight Weight Reported by Patient Reported by Patient Measurement Method Physical Exam: Gen.: Alert and in no obvious distress Skin: Warm and dry Extremities: Bilateral lower extremities are warm without calf tenderness. Dose motor and sensory are intact. Left lower sensory surgical incision is clean, dry, and intact. There is a VAC dressing in place holding adequate suction with serosanguineous drainage in the collection chamber. Assessment/Plan Assessment/Plan Assessment: 46-year-old male status post left ankle I&D/washout of infected wound postoperative day #2. The patient is progressing as expected, his pain is under adequate control, and he remains afebrile. The case was discussed with the infectious disease doctor recommending the patient be discharged with IV Rocephin daily Plan: Change antibiotics to 2 g Rocephin IV daily Keep dressing and VAC intact First VAC change Sunday Weekly ESR Continue current pain regiment GI and DVT prophylaxis Out of bed and ambulate Discharge home today with VNS follow-up Core Measures/Miscellaneous Venous Thromboembolism VTE Risk Factors: Age > 40, Surgery VTE Contraindications: No Contraindications VTE Diagnosis: No VTE Type: NONE VTE Confirmed by (Test): NONE Beta Raquel Is Beta Raquel a Home Med? No Antibiotics Is Patient on Antibiotics? Yes If Yes: infection
[2017-01-31 08:01] LABS: ABSOLUTE BASOPHIL COUNT 0 /CUMM (0.0-0.2); ABSOLUTE EOSINOPHIL COUNT 0.1 /CUMM (0.0-0.7); ABSOLUTE GRANULOCYTE CT 3.9 /CUMM (1.4-6.5); ABSOLUTE LYMPH COUNT 2.2 /CUMM (1.2-3.4); ABSOLUTE MONOCYTE COUNT 0.6 /CUMM (0.10-0.60); BASOPHIL % 0.4 % (0.0-2.0); EOSINOPHIL % 1.6 % (0-5); GRANULOCYTE % 57.2 % (42.2-75.2); HEMATOCRIT 42.6 % (42-52); MEAN CORPUSCULAR HGB CONC 34.7 G/DL (33.0-37.0); MEAN CORPUSCULAR VOLUME 92.2 FL (80.0-94.0); MEAN PLATELET VOLUME 9.2 FL (7.4-10.4); PLATELET COUNT 170 /CUMM (130-400); RBC DISTRIBUTION WIDTH 12.9 % (11.5-14.5); RED BLOOD CELL CT 4.63 /CUMM (4.70-6.10); WHITE BLOOD CELL COUNT 6.8 /CUMM (4.8-10.8)
--- NOTE | 2017-01-31 10:25 | NUR ---
PHYSICAL THERAPY- CONSULT RECEIVED, CHART REVIEWED. PT REPORTS HAS BEEN INDEPENDENTLY AMB AROUND ROOM W/O DIFFICULTY USING RW, NWB LLE. PREVIOUSLY WAS INDEPENDENT W/ CRUTCHES AT HOME, AND FEELS EVEN SAFER W/ RW. S/W SURGICAL PA FOR RW SCRIPT AND CONT CARE TO COMMUNICATE NEED FOR RW. WILL NOT FOLLOW.
--- NOTE | 2017-01-31 13:00 | NUR ---
NURSING NOTE: PT CONTINUES TO AWAIT HOME WOUND VAC ARRIVAL. VISITING NURSE AND IV INFUSION SET UP BY GENE ETHNOARCHAEOLOGIST. PAPERWORK COMPLETED BUT NOT FINALIZED YET, SCRIPTS GIVEN TO . CONT TO MONITOR.
--- NOTE | 2017-01-31 13:33 | PN- Infect Dx ---
Subjective Subjective: Afebrile. He does complain of pain in the left ankle Objective Last 24 Hrs of Vital Signs/I&O Vital Signs Date Time Temp Pulse Resp B/P B/P Pulse O2 O2 Flow FiO2 Mean Ox Delivery Rate 01/31 0749 134/78 01/31 0658 98.2 76 18 136/72 95 Room Air 01/30 2215 98.1 84 20 140/84 95 Room Air Intake & Output 01/31 1600 01/31 0800 01/31 0000 Intake Total 660 800 Output Total 800 350 Balance -140 450 Intake, IV 260 Intake, Oral 400 800 Output, Urine 800 350 Physical Exam Other Physical Findings: He appears comfortable in no acute distress Extremities left ankle dressing intact with wound VAC in place; PICC in place in the right upper extremity Results Last 24 Hours of Lab Results: Laboratory Tests 01/31 0550 Hematology CBC w Diff NO MAN DIFF REQ WBC (4.8 - 10.8 /CUMM) 6.8 RBC (4.70 - 6.10 /CUMM) 4.63 L Hgb (14.0 - 18.0 G/DL) 14.8 Hct (42 - 52 %) 42.6 MCV (80.0 - 94.0 FL) 92.2 MCH (27.0 - 31.0 PG) 32.0 H RDW (11.5 - 14.5 %) 12.9 Plt Count (130 - 400 /CUMM) 170 MPV (7.4 - 10.4 FL) 9.2 Gran % (42.2 - 75.2 %) 57.2 Lymphocytes % (20.5 - 51.1 %) 32.6 Monocytes % (1.7 - 9.3 %) 8.2 Eosinophils % (0 - 5 %) 1.6 Basophils % (0.0 - 2.0 %) 0.4 Absolute Granulocytes (1.4 - 6.5 /CUMM) 3.9 Absolute Lymphocytes (1.2 - 3.4 /CUMM) 2.2 Absolute Monocytes (0.10 - 0.60 /CUMM) 0.6 Absolute Eosinophils (0.0 - 0.7 /CUMM) 0.1 Absolute Basophils (0.0 - 0.2 /CUMM) 0 PUBS MCHC (33.0 - 37.0 G/DL) 34.7 ESR Westergren (0 - 10 MM) 26 H Last 24 Hours of Rashad Results: OR culture January 29 positive for Staph aureus sensitive to Oxacillin and Ceftriaxone Blood cultures 2 January 29 negative Assessment/Plan Impression: Stable status post removal of the hardware from his ankle 6 days ago for an infection status post ORIF, with debridement of the bone 2 days ago, now on Ceftriaxone, switched from Oxacillin for more convenient administration at home. He remains afebrile with a normal white blood cell count. Suggestion: 1. Would follow ESR weekly 2. Continue Ceftriaxone for 4 weeks (until February 26)
[2017-01-31 14:48] VITALS: BP 152/98
[2017-01-31 15:43] VITALS: BP 150/88
== END 2017-01-31 18:15 | disposition home health service (06) | DRG 493 ==
LOC: ERH 12:00 → 2NB 13:33 → ERHI 13:33 → ENRESERV 15:43 → 2NB 20:55 → ENPENDDIS 01-31 07:49 → 2NB 01-31 18:15
PROVIDERS: Physician Assistant; Physician Assistant Surgical; ADMIT Orthopaedic Surgery Foot and Ankle Surgery
PROC: 0QBK0ZZ Excision of Left Fibula, Open Approach (ICD-10-PCS; principal; 2017-01-29)
DX: T84.625A Infection and inflammatory reaction due to internal fixation device of left fibula, initial encounter (principal); M86.8X6 Other osteomyelitis, lower leg; I10 Essential (primary) hypertension; B95.61 Methicillin susceptible Staphylococcus aureus infection as the cause of diseases classified elsewhere; E78.5 Hyperlipidemia, unspecified; Y83.8 Other surgical procedures as the cause of abnormal reaction of the patient, or of later complication, without mention of misadventure at the time of the procedure; K21.9 Gastro-esophageal reflux disease without esophagitis
CPT/HCPCS: 2NBP; 87070; 87075; 87184; 87040; 87147; 93005; 93010; 96365; 96375; C1769; J0696; J1630; J1885

== ENCOUNTER 2017-04-18 14:54 | Inpatient (IN) | payer OTHER, MEDICARE ==
[~2017-04-18] VITALS: Ht 177.8 cm; Wt 124.7 kg
[~2017-04-18 14:54] MED LIST changes: +AUGMENTIN 875-1 EACH PO; +BACTRIM DS TAB1 EACH PO; +CEFTRIAXONE2 G2 IV; +DILAUDID2 M1 PO; +MS CONTIN15 M2 PO; +OXACILLIN SODIUM2 G1 IV
--- NOTE | 2017-04-18 15:21 | NUR ---
HERE ON 04/16 FOR ABCESS TO R CHEST, HAD I AND D DONE, STATES PAIN IS WORSE AND REDNESS HAS SPREAD.
--- NOTE | 2017-04-18 17:26 | NUR ---
PT AMBULATED TO ROOM VIA STRETCHER. PAUL MAST IN ROOM EVALUATING THE PT.
--- NOTE | 2017-04-18 17:34 | ED SKIN/ALLERGY COMPLAINT ---
History of Present Illness General Chief Complaint: Skin Rash/ Abcess Stated Complaint: ABCESS Source: patient Exam Limitations: no limitations Vital Signs & Intake/Output Vital Signs & Intake/Output Vital Signs Date Time Temp Pulse Resp B/P B/P Pulse O2 O2 Flow FiO2 Mean Ox Delivery Rate 04/18 2018 97.0 78 20 138/78 95 Room Air 04/18 1522 96.2 84 18 131/82 96 Room Air Allergies Coded Allergies: NO KNOWN ALLERGIES (11/14/16) Reconcile Medications Amlodipine Besylate/Benazepril (Amlodipine-Benazepril 5-10 MG) 5 MG-10 MG CAPSULE 1 CAP PO DAILY HTN (Reported) Amoxicillin/Potassium Clav (Augmentin 875-125 Tablet) 875 MG-125 MG TABLET 1 TAB PO BID CELLULITIS Atorvastatin Calcium 10 MG TABLET 1 TAB PO DAILY CHOLESTEROL (Reported) Ibuprofen 800 MG TABLET 1 TAB PO PRN PAIN (Reported) Metformin HCl (Metformin HCl ER) 500 MG TAB.ER.24H 1 TAB PO BID DM (Reported) Oxycodone HCl/Acetaminophen (Oxycodone-Acetaminophen 5-325) 5 MG-325 MG TABLET 1-2 TAB PO Q4H PAIN (Reported) Sulfamethoxazole/Trimethoprim (Bactrim Ds Tablet) 800 MG-160 MG TABLET 1 TAB PO BID CELLULITIS Triage Note: HERE ON 04/16 FOR ABCESS TO R CHEST, HAD I AND D DONE, STATES PAIN IS WORSE AND REDNESS HAS SPREAD. Triage Nurses Notes Reviewed? yes Onset: Gradual Duration: getting worse Timing: recent history Severity: moderate Severity Numbers: 5 HPI: Patient is a 46-year-old male with a past medical history of hypertension, hyperlipidemia, diabetes mellitus 2 who presents emergency room with concerns of worsening abscess and cellulitis to the RIGHT chest region. Patient was evaluated at [facility] emergency room on April 16 for concerns of a 2 week history of redness and tender region to the skin of the right chest where he began squeezing the purulent discharge however the redness and pain began to get worse where he had an incision and drainage performed at the emergency room 3 days ago patient was administered IV antibiotics of Unasyn and then was prescribed outpatient medications of Augmentin and Bactrim which patient has been compliant. Patient presents emergency room stay in that he's been complaining of worsening redness swelling and pain that is radiating to the right lateral aspect of his infection of his chest. Patient has complaints of fevers Patient also has a remote history of a left ankle fracture with infected hardware placement in which patient has a chronically slow healing left lateral fibular skin ulcer where patient sees wound care patient also was evaluated by plastic surgeon Dr. TRUJILLO today and which the patient states that the left leg skin ulcer is being considered for skin grafting however there is no concerns of infection to that region however Dr. TRUJILLO was concerned of patient's worsening cellulitis to the right chest region (SHANE GRIFFITH) Past History Travel History Traveled to [place] past 21 day No Medical History Any Pertinent Medical History? see below for history Neurological: NONE EENT: NONE Cardiovascular: hypertension, hyperlipidemia Respiratory: bronchitis Gastrointestinal: NONE Hepatic: NONE Renal: NONE Musculoskeletal: chronic back pain Psychiatric: NONE Endocrine: diabetes Blood Disorders: NONE Cancer(s): NONE BOTTLE BLOWER/Reproductive: NONE History of MRSA: No History of VRE: No History of CDIFF: No Surgical History Surgical History: BACK SX 2006 and 2007 removal of hardware left ankle See HPI ORIF left ankle November 2016 Psychosocial History Who do you live with Family Services at Home None What is your primary language Cape Verdean Tobacco Use: Current Daily Use Daily Tobacco Use Amount/Type: => 5 Cigarettes daily ETOH Use: denies use Family History Family History, If Any: FATHER Relation not specified for: Coronary artery disease Hx Contributory? No (SHANE GRIFFITH) Review of Systems Review of Systems Constitutional: Reports: no symptoms, fever. EENTM: Reports: no symptoms. Respiratory: Reports: no symptoms. Cardiovascular: Reports: no symptoms. GI: Reports: no symptoms. Genitourinary: Reports: no symptoms. Musculoskeletal: Reports: see HPI. Skin: Reports: see HPI. Neurological/Psychological: Reports: no symptoms. Hematologic/Endocrine: Reports: no symptoms. Immunologic/Allergic: Reports: no symptoms. All Other Systems: Reviewed and Negative (SHANE GRIFFITH) Physical Exam Physical Exam General Appearance: no apparent distress, alert, comfortable Head: atraumatic Eyes: Bilateral: normal appearance. Ears, Nose, Throat: normal pharynx, normal ENT inspection Neck: normal inspection, supple Respiratory: normal breath sounds, chest non-tender Cardiovascular: regular rate/rhythm Skin Problem Location: torso, lower extremities Diagram Body: 1) OPEN 6 X 3 CM SUBCUTANEOUS SKIN ULCER NO SURROUNDING ERYTHEMA, WARMTH NO ACTIVE D/C 2) NOTED 1 CM incision with surrounding erythema warmth and fluctuance 3) Noted migrating erythema warmth and tenderness (MARI MILLER,SHANE) Progress Differential Diagnosis: abscess/cellulitis, anaphylaxis, contact dermatitis, meningitis/sepsis, OSTEOMYELITIS Plan of Care: Orders Procedure Date/time Status Consistent Carbohydrate 3 04/19 B Active CBC WITHOUT DIFFERENTIAL 04/19 06 Active BASIC ELECTROLYTES PLUS BUN&CR 04/19 06 Active Pathway - chart 04/18 2147 Active House Staff 04/18 2147 Active Code Status 04/18 2147 Active LACTIC ACID 04/18 203 Complete Patient Data 04/18 185 Active Admit to inpatient 04/18 185 Active Intake & Output 04/18 181 Active LACTIC ACID 04/18 1734 Complete WESTERGREN SED RATE 04/18 1734 Complete C-REACTIVE PROTEIN 04/18 173 Complete COMPREHENSIVE METABOLIC PANEL 04/18 173 Complete CBC WITHOUT DIFFERENTIAL 04/18 173 Complete VTE Mechanical Prophylaxis 04/18 UNK Active Vital Signs 04/18 UNK Active Current Medications Sig/Ban Start time Last Medication Dose Stop Time Status Admin Oxycodone/ 1 TAB Q6P PRN 04/18 2200 UNVr Acetaminophen (Percocet) Polyethylene Glycol 17 GM AT BEDTIME 04/18 2200 UNVr (Miralax) Senna/Docusate Sodium 1 TAB AT BEDTIME 04/18 220 UNVr (Senokot S) Acetaminophen 650 MG Q6P PRN 04/18 2145 UNVr (Tylenol) Enoxaparin Sodium 40 MG DAILY 04/18 2145 UNVr (Lovenox) Oxycodone HCl 10 MG Q6P PRN 04/18 2145 UNVr (Roxicodone) Sodium Chloride 1,000 ML BOLUS ONE 04/18 2145 UNVr (Normal Saline 0.9%) 04/18 2244 Sodium Chloride 1,000 ML .Q10H 04/18 2145 UNVr (Normal Saline 0.9%) Laboratory Tests 04/18/172119: Lactic Acid 1.9 04/18/171809: Anion Gap 13, Estimated GFR > 60, BUN/Creatinine Ratio 25.0, Glucose 114 H, Lactic Acid 2.2 H, Calcium 9.5, Total Bilirubin 0.6, AST 17, ALT 34, Alkaline Phosphatase 54, C-Reactive Prot, Quant 4.6 H, Total Protein 6.9, Albumin 4.3, Globulin 2.6, Albumin/Globulin Ratio 1.7, CBC w Diff NO MAN DIFF REQ, RBC 5.24, MCV 93.9, MCH 31.9 H, RDW 13.5, MPV 8.3, Gran % 65.4, Lymphocytes % 24.2, Monocytes % 8.5, Eosinophils % 1.5, Basophils % 0.4, Absolute Granulocytes 5.4, Absolute Lymphocytes 2.0, Absolute Monocytes 0.7 H, Absolute Eosinophils 0.1, Absolute Basophils 0, PUBS MCHC 34.0, ESR Westergren 23 H On initial presentation patient has worsening concerns of cellulitis and abscess. Patient spell outpatient treatment of antibiotics. Using approximately 10 mL of 1% lidocaine the area was anesthetized then an incision was made with a left blade again in which using Ailyn curved clamp moderate amount of purulent was PRODUCED. Gauze and Tegaderm were applied Patient was administered IV Unasyn. Blood cultures pending After incision and drainage was performed patient requested pain medications which was provided to patient. It is noted through culture results the patient currently has gram-positive cocci results of Gram stain Patient has no history of MRSA infection At this time there is little suspicion of left lower extremity osteomyelitis However patient will require wound care during his admission (MARI MILLER,SHANE) Diagnostic Imaging: Viewed by Me: Radiology Read. Radiology Impression: SEE COMMENTS Comments: PATIENT: HOLLI OLSEN V PRESENT AGE: 46 PATIENT ACCOUNT NO: [id number] : 72 LOCATION: [facility] ORDERING PHYSICIAN: SHANE MILLER SERVICE DATE: 04/18/17 EXAM TYPE: RAD - XRY-ANKLE 3 OR MORE VIEWS L EXAMINATION: XR ANKLE, LEFT CLINICAL INFORMATION: History of fracture with repair with hardware infection left lateral open skin lesion COMPARISON: 11/14/2016 exam TECHNIQUE: AP, lateral, and mortise views of the left ankle. FINDINGS: Soft tissue deformity along the lateral aspect of the ankle is seen. There is underlying bony irregularity in the region of the previously noted distal fibular fracture. Ghost tracks from prior screw fixation is seen although there is no remaining hardware at this time. Chronic periosteal changes are present in this location with fracture line is less distinct consistent with interval healing. I do not appreciate any definitive acute bony destructive lesions on the lateral view there is subtle irregularity along the posterior calcaneus of uncertain significance. There is subtle lucency in this location which is new from the prior exam this is remote from the area of the fracture however. IMPRESSION: Interval open reduction internal fixation and then removal of hardware with ghost tracks are still apparent fracture line has healed with no residual fracture seen. Chronic periosteal changes are present consistent with interval healing. There is diffuse soft tissue swelling over the lateral ankle I do not appreciate any acute bony destructive changes in this region. In the lateral film there is subtle lucency along the posterior superior aspect of the calcaneus near the attachment point of the Achilles tendon of uncertain etiology. This is remote from the area of the prior fracture. Clinical correlation for any pain in this region would be helpful. DICTATED BY: CONNOR BEVERLY MD DATE/TIME DICTATED:04/18/171757 DRAFTER:JACQUELINE (SHANE GRIFFITH) Departure Departure Disposition: STILL A PATIENT Condition: Stable Clinical Impression Primary Impression: Cellulitis of chest wall Secondary Impressions: Abscess of chest Referrals: SHELBY NGUYEN,WILLIE Wong (PCP/Family) Departure Forms: Customer Survey General Discharge Information Admission Note Spoke With: JEREMIAH DUPREE MD Documentation of Exam: Documentation of any treatments & extenuating circumstances including Concerns Regarding Discharge (functional status, medication knowledge or non-compliance, living conditions, etc.) that warrant an admission rather than observation: [ Discussed patient with Dr. DUPREE who agrees with general medicine admission for concerns of failed outpatient treatment with antibiotics with abscess cellulitis. Patient requires ID consultation, repeat labs and IV antibiotics. Outpatient treatment at this time would be medically harmful] (SHANE GRIFFITH) PA/MAKE UP MAN Co-Sign Statement Statement: ED Attending supervision documentation- [X] I saw and evaluated the patient. I have also reviewed all the pertinent lab results and diagnostic results. I agree with the findings and the plan of care as documented in the PA's/MAKE UP MAN's documentation. [X]X I have reviewed the ED Record and agree with the PA's/MAKE UP MAN's documentation. [] Additions or exceptions (if any) to the PAs/MAKE UP MAN's note and plan are summarized below: [] (ALLIE NGUYEN,GODFREY Rios)
--- NOTE | 2017-04-18 17:46 | NUR ---
PT BACK AND FORTH FROM [facility].
--- NOTE | 2017-04-18 18:05 | RADIOLOGY REPORT ---
EXAMINATION: XR ANKLE, LEFT CLINICAL INFORMATION: History of fracture with repair with hardware infection left lateral open skin lesion COMPARISON: 11/14/2016 exam TECHNIQUE: AP, lateral, and mortise views of the left ankle. FINDINGS: Soft tissue deformity along the lateral aspect of the ankle is seen. There is underlying bony irregularity in the region of the previously noted distal fibular fracture. Ghost tracks from prior screw fixation is seen although there is no remaining hardware at this time. Chronic periosteal changes are present in this location with fracture line is less distinct consistent with interval healing. I do not appreciate any definitive acute bony destructive lesions on the lateral view there is subtle irregularity along the posterior calcaneus of uncertain significance. There is subtle lucency in this location which is new from the prior exam this is remote from the area of the fracture however. IMPRESSION: Interval open reduction internal fixation and then removal of hardware with ghost tracks are still apparent fracture line has healed with no residual fracture seen. Chronic periosteal changes are present consistent with interval healing. There is diffuse soft tissue swelling over the lateral ankle I do not appreciate any acute bony destructive changes in this region. In the lateral film there is subtle lucency along the posterior superior aspect of the calcaneus near the attachment point of the Achilles tendon of uncertain etiology. This is remote from the area of the prior fracture. Clinical correlation for any pain in this region would be helpful.
--- NOTE | 2017-04-18 18:19 | NUR ---
IV #20G INSERTED ON LEFT AC. LABS DRAWN AND SENT. MEDICATED WITH NS 1L UP INFUSING PIGGYBACKED WITH UNASYN INFUSING AT 200ML/HR.
[2017-04-18] MEDS ORDERED: IBUPROFEN800 M1 PO (18:22)
[2017-04-18] MEDS ORDERED: ATORVASTATIN CA10 M1 PO (18:22)
[2017-04-18] MEDS ORDERED: OXYCODONE-ACET1 EACH PO (18:22)
[2017-04-18 18:34] LABS: ABSOLUTE BASOPHIL COUNT 0 /CUMM (0.0-0.2); ABSOLUTE EOSINOPHIL COUNT 0.1 /CUMM (0.0-0.7); ABSOLUTE GRANULOCYTE CT 5.4 /CUMM (1.4-6.5); ABSOLUTE MONOCYTE COUNT 0.7 /CUMM (0.10-0.60); BASOPHIL % 0.4 % (0.0-2.0); EOSINOPHIL % 1.5 % (0-5); GRANULOCYTE % 65.4 % (42.2-75.2); HEMATOCRIT 49.2 % (42-52); MEAN CORPUSCULAR HGB 31.9 PG (27.0-31.0); MEAN CORPUSCULAR VOLUME 93.9 FL (80.0-94.0); MEAN PLATELET VOLUME 8.3 FL (7.4-10.4); PLATELET COUNT 166 /CUMM (130-400); RBC DISTRIBUTION WIDTH 13.5 % (11.5-14.5); RED BLOOD CELL CT 5.24 /CUMM (4.70-6.10); WHITE BLOOD CELL COUNT 8.2 /CUMM (4.8-10.8)
--- NOTE | 2017-04-18 19:05 | NUR ---
MEDICATED WITH MORPHINE IVP ORDERED FOR PAIN 03/10. O2 SATURATIION 98%RA PRIOR TO MED ADMINISTRATION.
--- NOTE | 2017-04-18 19:08 | NUR ---
CRITICAL TEST RESULTS [id number] HOLLI OLSEN V 46 M TESTS AND RESULTS: LACTIC ACID 2.2 Results received and read back by: EMANI DE GUZMAN Results received date and time: 04/18/171909 The following provider was notified of the results, and read the results back: Notified date and time: 04/18/17 at 1909 TO PAUL MAST
--- NOTE | 2017-04-18 19:19 | NUR ---
BED ASSIGNMENT 230-02
--- NOTE | 2017-04-18 19:20 | NUR ---
ASSUMED CARE OF PT.
--- NOTE | 2017-04-18 20:11 | History & Physical ---
See Addendum GODFREY BORGES MD 04/18/17 2010: General Information and HPI MD Statement: I have seen and personally examined HOLLI OLSEN V and documented this H&P. The patient is a 46 year old M who presented with a patient stated chief complaint of [abscess, celulitis of R chest]. Source of Information: patient, family, old records Exam Limitations: no limitations History of Present Illness: pt is a 46 yo male with a hx of DM II, htn, and hyperlipidemia who presented to the ED complaining of abscess and worsening celulitis on the R chest s/p I&D. Pt claims it started 2 weeks as a pimple on the R chest which he picked at. The abscess became larger and became increasingly painful over the course of the last two weeks. He presented to the ED on 04/16/17, I&D was performed, IV unasyn was given in the ED and the pt was discharged on augmentin and bactrim. The pt reports that he did not believe that all of the abscess was expressed during the I&D and is frustrated with the care he recieved in the ED. He took 3 doses of his home abx before returning. The pt reports increasing pain in the area of the abscess, since discharge from the ED and spreading of the rash. Pt also reports nonhealing wound on the L Lateral ankle since ORIF to repair fx in 2016. Pt was seeing Dr. Truong for a plastics consult about potential skin graft fot his ankle when Dr. Truong recommended he come to the ED. Pt reports increased perspiration over the last two weeks, but admits he normally sweats a lot a baseline. Pt denies nausea, vomiting, fever, chills, chest pain, sob, cough, or headache. 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 IADLs Independent: shopping, housework, finances, food prep, telephone, transportation , medication admin. Review of Systems Review of Systems Constitutional: Reports: see HPI. EENTM: Reports: blurred vision, double vision, visual changes, throat pain. Cardiovascular: Reports: see HPI. Respiratory: Denies: cough, short of breath. GI: Denies: constipation, diarrhea, changes in stool, vomiting. Genitourinary: Denies: dysuria, frequency, pain. Musculoskeletal: Denies: gout, joint pain, joint swelling. Skin: Reports: see HPI. Neurological/Psychological: Denies: confusion, headache, numbness. Hematologic/Endocrine: Denies: bruising, polyuria. Exam & Diagnostic Data Last 24 Hrs of Vital Signs/I&O Vital Signs Date Time Temp Pulse Resp B/P B/P Pulse O2 O2 Flow FiO2 Mean Ox Delivery Rate 04/19 0340 98.0 88 22 124/70 98 04/18 2340 98.2 82 28 154/84 100 04/18 2018 97.0 78 20 138/78 95 Room Air 04/18 1522 96.2 84 18 131/82 96 Room Air Intake & Output 04/19 0800 04/19 0000 04/18 1600 Intake Total 1100 Output Total 1300 Balance -1300 1100 Intake, IV 1100 Output, Urine 1300 Patient 275 lb Weight Weight Reported by Patient Measurement Method Physical Exam General Appearance Alert, Oriented X3, Cooperative, No Acute Distress Skin eryrthema extending from R mid chest to past the nipple, area is warm , R chest, area of I&D , open wound with surrounding area of induration, not draining puss, L lateral ankle, large open wound approx 10 cm by 3 cm. no surrounding erythema, numerous small ulcers due to chronic picking at skin by pt Skin Temp/Moisture Exam: Warm/Dry Sepsis Skin Exam (color): Normal for Ethnicity HEENT Atraumatic, PERRLA, EOMI, Mucous Membr. moist/pink Neck Supple, No JVD, +2 Carotid Pulse wo Bruit Lymphatic Cervical nl Cardiovascular Regular Rate, Normal S1, Normal S2, No Murmurs Lungs Clear to Auscultation, Normal Air Movement Abdomen Normal Bowel Sounds, Soft, No Tenderness, No Hepatospenomegaly, No Masses, obese Neurological Normal Speech, Strength at 5/5 X4 Ext, Sensation Intact, Cranial Nerves 3-12 NL Extremities No Clubbing, No Cyanosis, Normal Pulses Vascular Normal Pulses, Pulses Symmetrical Sepsis Peripheral Pulse Location: Dorsalis Pedis Sepsis Peripheral Pulse Exam: Normal Sepsis Cap Refill Exam: <2 Sec Diagnostic Data Other Results ankle xray IMPRESSION: Interval open reduction internal fixation and then removal of hardware with ghost tracks are still apparent fracture line has healed with no residual fracture seen. Chronic periosteal changes are present consistent with interval healing. There is diffuse soft tissue swelling over the lateral ankle I do not appreciate any acute bony destructive changes in this region. In the lateral film there is subtle lucency along the posterior superior aspect of the calcaneus near the attachment point of the Achilles tendon of uncertain etiology. This is remote from the area of the prior fracture. Clinical correlation for any pain in this region would be helpful. Assessment/Plan Assessment: pt is a 46 yo male with a hx of DM II, htn, and hyperlipidemia who presented to the ED complaining of abscess and worsening celulitis on the R chest s/p I&D. He presented to the ED on 04/16/17, I&D was performed, IV unasyn was given in the ED and the pt was discharged on augmentin and bactrim. He took 3 doses of his home abx before returning. Pt also reports nonhealing wound on the L Lateral ankle since ORIF to repair fx in 11/2016. Pt was seeing Dr. Truong for a plastics consult about potential skin graft fot his ankle when Dr. Truong recommended he come to the ED. #Abscess of the R chest wall - Admit to gen med -F/U wound cultures -C/W IV unasyn - c/w current pain management regimen - monitor spread of erythema, currently outlined with a marker - surgical consult #nonhealing wound on L Lateral ankle -wound care consult -f/u with plastic surgery (Dr. Truong) #DM2 - insulin sliding scale - hold home metformin - Accucheck TID - check HbA1c - Diabetic diet #DVT prophylaxis -enoxaparin #code status -Full code As Ranked By This Provider Problem List: 1. Cellulitis 2. Non-healing wound of lower extremity 3. Abscess Core Measures/Miscellaneous Acute Coronary Syndrome ACS Diagnosis: No Cerebrovascular Accident CVA/TIA Diagnosis: No Congestive Heart Failure CHF Diagnosis: No VTE (View Protocol) VTE Risk Factors: Age > 40, Obesity No Mech VTE prophylaxis d/t: No contraindications No VTE Pharm Prophylaxis d/t: No contraindications VTE Diagnosis: No VTE Type: NONE VTE Confirmed by (Test): NONE Sepsis (View Protocol) Severe Sepsis Present: No Septic Shock Septic Shock Present: No Miscellaneous Documentation Attending Case Discussed With: JEREMIAH DUPREE MD Primary Care Physician: WILLIE RYAN MD Patient sees these Specialists Dr. Anthony Ritter Level of Patient Care: General Medicine Consults Needed: Consulting Specialty: General Surgery ALEKSANDAR NGUYEN,SHANDRA 04/18/17 2208: Resident Review Statement Resident Statement: examined this patient, discussed with [employer] compliance internship, agreed with [employer] compliance internship, discussed with family, reviewed EMR data (avail), discussed with nursing , reviewed images Other Findings: 46-year-old male with past medical history of hypertension, hyperlipidemia, diabetes type 2, left ankle fracture treated with ORIF in November 2016, and a recent ED visit 2 days ago for skin infection presented with right sided chest wall skin infection, and left ankle infection. Patient has a long-standing history of left ankle wound after ORIF in November, was managed with wound VAC, and a plan to have a skin graft by Dr. Michel from plastic surgery, with whom he followed up today. Of note, patient was in the emergency department 2 days ago for a 2 week history of right-sided chest wall abscess which was incised and drained in the ED, and treated with oral antibiotics Augmentin and Bactrim. The infection initially started as pimple, but the patient admits to scratching/picking his skin as a habit which might have contributed to the wounds. Patient has taken [address] Michel wanted to make sure the infection is taking care of before going for skin graft. Patient does not complain of fever, chills, chest pain, shortness of breath, cough, sick contacts, recent travel, leg swelling. At presentation, his vital signs were stable, patient is morbidly obese, slightly anxious, multiple superficial wound all over his body at different stages of healing, who will breast bandage over his left ankle, and a dressed wound over his right side of his chest. Right chest wound has I&D site that is indurated but is not expressing any pus/discharge currently. There is a surrounding erythema present with sensitive overlying skin. Left ankle has an open wound around 10 cm x 5 cm longitudinally, with granulation tissue base, and slough around the margins with some discharge but no aden pus. Labs were within normal limits with no leukocytosis, normal kidney function, but lactic acidosis of 2.2, which decreased to 1.9 after 2 L of normal saline. X- ray of the left ankle shows chronic changes, but does not mention osteomyelitis. Assessment and plan: Patient will be admitted to the general medical floor for themanagement of following issues: #Right chest wall skin abscess: Clinical features and recent incision and drainages is suggestive of skin abscess. Preliminary report for microbiology shows heavy growth of gram- positive cocci, pending identification and sensitivity. He has history of MSSA, and no high risk exposure to MRSA. * Will continue IV Unasyn 1.5 g every 8 hours, pending culture reports * Follow-up micrology report from 04/18/2017 * Adequate pain medication * Surgical consultation in the morning #Left ankle ulcer, slowly healing Patient has had left ankle ulcer since his ORIF in November, which was initially managed with a wound VAC and appears to be improving although at a slower pace. The granulation tissue base seems healthy, with some slough around the margins. Plastic surgery already on board on outpatient basis. * Wound care consultation and management in the morning * Follow-up with orthopedics and plastic surgery in the morning * Of note, plastic surgery wanted infection to be under control before planning for grafting process. #Diabetes mellitus type 2 Patient's has been A1c done on November was 6.5, and the patient takes oral anti -hyperglycemic drug. * We will hold off oral medications for now. * Accu-Cheks 3 times a day/HS * Insulin sliding scale for now * Recheck HbA1c #DVT prophylaxis with enoxaparin #Diet: Diabetic diet cc 3 #CODE STATUS: Full code Microbiology report from the other site left ankle shows MSSA, resistant to azithromycin/clindamycin/erythromycin. LEIA NGUYEN, [facility] 04/18/17 2305: General Information and HPI Allergies/Medications Home Med list Amlodipine Besylate/Benazepril (Amlodipine-Benazepril 5-10 MG) 5 MG-10 MG CAPSULE 1 CAP PO DAILY HTN (Reported) Atorvastatin Calcium 10 MG TABLET 1 TAB PO DAILY CHOLESTEROL (Reported) Ibuprofen 800 MG TABLET 1 TAB PO PRN PAIN (Reported) Metformin HCl (Metformin HCl ER) 500 MG TAB.ER.24H 1 TAB PO BID DM (Reported) Oxycodone HCl/Acetaminophen (Oxycodone-Acetaminophen 5-325) 5 MG-325 MG TABLET 1-2 TAB PO Q4H PAIN (Reported) Attending MD Review Statement Attending Statement Attending MD Statement: examined this patient, discuss w/resident/PA/ENERGY RATER, agreed w/resident/PA/ENERGY RATER Attending Assessment/Plan: 46 yo morbidly obese M, smoker, with h/o T2DM, HTN, HLD, chronic back pain, left fibular fracture s/p ORIF that was c/b hardware infection requiring removal and 4 weeks of antibiotics for MSSA, now has a chronic poorly healing wound of left ankle, was seen in the ER on April 16 for abscess of the chest wall for which I and D was done, he was discharged home on Augmentin and Bactrim. Patient reports it started as a small pimple which he tried to pop multiple times, but swelling, redness and pain increased. He attributes to these pimples to his excessive sweating. He went to Dr. Truong for evaluation of his left ankle poorly healing ulcer for possible need for graft. He took a look at the chest and advised the patient to come to ER as erythema and pain seemed to be worsening despite PO antibiotics. VSS. Chest exam: medial to the right nipple is the 1 cm incision site with minimal seropurulent discharge, this was incised further by the ER PA. There is migrating erythema and swelling to the right side of the chest. Tenderness+. LLE ankle wound dressing+. Labs: no leukocytosis, ESR 23, lactic acid 2.2 --> 1.9, CRP 4.6. Ankle Xray: chronic periosteal changes s/o interval healing. Trunk cultures (April 17) gram stain shows gram positive cocci, culture has heavy growth of gram positive cocci. 1. Right chest wall cellulitis, abscess s/p I and D, failed outpatient antibiotic therapy. GM admit, panculture, he received Unasyn and a dose of Vancomycin in the ER. Given previous h/o MSSA will continue with IV Unasyn for now. Follow trunk cultures. Gentle hydration. Surgery consult in AM. Pain management with Percocet and IV morphine. 2. T2DM. Accucheks, hold metformin, initiate Novolog SS.Check HbA1c. 3. Left ankle poorly healing ulcer. Please obtain Wound care consult to help with daily dressings. Outpatient follow up with Ortho and Plastics. DVT ppx Lovenox. Full code.
--- NOTE | 2017-04-18 23:02 | Admission Certification ---
Admission Certification Certification Statement - As attending physician, I certify that at the time of - admission, based on clinical presentation, severity of - symptoms, need for further diagnostic testing and - therapeutic interventions, and risk of adverse outcomes - without in-hospital treatment, in my clinical assessment, - this patient requires an acute hospital stay for a minimum - of two nights or longer. I have also considered psychsocial - factors such as support system, advanced age, financial - issues, cognitive issues, and failed out-patient treatments, - past re-admission history, safety of patient, and lack of - compliance as applicable. Specific rationale supporting this admission is: Right chest wall abscess and cellulitis, failed outpatient therapy.
--- NOTE | 2017-04-18 23:07 | NUR ---
PT REQUESTING NASAL SPRAY. CALL PLACED TO HOUSESTAFF
--- NOTE | 2017-04-18 23:26 | NUR ---
NO RETURN CALL FROM [facility]ET.
--- NOTE | 2017-04-18 23:36 | NUR ---
CALLED TO ROOM BY PT, REPORTS FEELING SOB AND SWEATING, REPORTS THIS HAPPENS FREQUENTLY AND PT SMOKES POT TO HELP WITH HIS SYMPTOMS. VSS BUT PT IS ANXIOUS AND UNABLE TO SIT IN BED, SITTING IN CHAIR. AND ROCKING BACK AND FORTH. 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
--- NOTE | 2017-04-19 00:05 | NUR ---
CONT TO AWAIT BED ASSIGNEMNT. PT VERY EMOTIONAL
--- NOTE | 2017-04-19 00:11 | NUR ---
PT MUCH LESS EMOTIONAL, REPORTS TIRED OF BEING IN PAIN X 15 YRS AND JUST IS FRUSTRATED WITH HIS "ANXIETY".
--- NOTE | 2017-04-19 00:23 | NUR ---
BLOOD CULTURES X 2 SETS ORDERED AFTER 2ND IV DOSE OF UNASYN HAS BEEN GIVEN. DISCUSSED WITH DR. TYSON NEED OR PURPOSE OF BLOOD CULTURES IN LIGHT PT HAS BEEN ON PO X 2 DAYS REC'D UNASYN 2 DAYS AGO AND HAS HAD 2 DOSES HERE IN ED TONIGHT. ALSO IF NEEDED CAN BE DONE WITH 0600 LABS PT HAS THOSE ORDERED WELL.
--- NOTE | 2017-04-19 00:53 | NUR ---
CONT TO AWAIT BED ASSIGNMENT
--- NOTE | 2017-04-19 01:27 | NUR ---
PER DR TYSON,BLOOD CULTURES MAY BE DONE WITH LABS
--- NOTE | 2017-04-19 03:55 | NUR ---
PER VENTILATION EQUIPMENT TENDER PT WILL NOT GET A BED. PT AWAKE AT THIS TIME, WILL NOW MOVE PT TO ROOM 4. AND SETTLE TO SLEEP,
[2017-04-19 04:40] LABS: ABSOLUTE BASOPHIL COUNT 0 /CUMM (0.0-0.2); ABSOLUTE EOSINOPHIL COUNT 0.1 /CUMM (0.0-0.7); ABSOLUTE GRANULOCYTE CT 5.2 /CUMM (1.4-6.5); ABSOLUTE LYMPH COUNT 2.4 /CUMM (1.2-3.4); ABSOLUTE MONOCYTE COUNT 0.7 /CUMM (0.10-0.60); BASOPHIL % 0.4 % (0.0-2.0); EOSINOPHIL % 1.5 % (0-5); GRANULOCYTE % 61.9 % (42.2-75.2); MEAN CORPUSCULAR HGB 31.9 PG (27.0-31.0); MEAN CORPUSCULAR HGB CONC 34.1 G/DL (33.0-37.0); MEAN CORPUSCULAR VOLUME 93.6 FL (80.0-94.0); MEAN PLATELET VOLUME 7.7 FL (7.4-10.4); PLATELET COUNT 162 /CUMM (130-400); RBC DISTRIBUTION WIDTH 13.4 % (11.5-14.5); RED BLOOD CELL CT 4.62 /CUMM (4.70-6.10); WHITE BLOOD CELL COUNT 8.4 /CUMM (4.8-10.8)
--- NOTE | 2017-04-19 04:44 | NUR ---
0600 LABS DRAWN AT TIME OF MOVE TO NEW ROOM PT WAS SETTLED TO SLEEP AT 0130 AND THEN WOKEN AT 0330 TO MOVE TO POD 1 SINCE INPT BED IS LONGER AVAILABLE FOR THISD PT. BLOOD CULTURES X 2 AND AM LABS DRAWN AND SENT. VOIDING IN GOOD AMTS, GIVEN JUICE AT THIS TIME. SETTLED TO SLEEP
[2017-04-19 04:47] LABS: HEMATOCRIT 43.2 % (42-52)
--- NOTE | 2017-04-19 04:49 | NUR ---
ONLY 1 BOTTLE OF 2ND SET OF BLOOD CULTURES WERE SENT [place] WAS ON TOO LONG TO GET TO REQUIRED FILL LINE AND BLOOD WAS A SLOW FILL.
--- NOTE | 2017-04-19 07:30 | NUR ---
ASSUMED CARE, SITTING UP IN CHAIR, PAIN 6/10 (LEFT ANKLE). IV ABX INFUSING.
--- NOTE | 2017-04-19 08:33 | NUR ---
DR. RICH HERE TO EVALUATE, C/O PAIN IN LEFT ANKLE. GIVEN PERCOCET 1 PO.
--- NOTE | 2017-04-19 08:57 | PN- Housestaff ---
See Addendum Subjective Follow-up For: Cellulitis R chest, L ankle wound Subjective: He presented last night. This morning he feels tired. He is in 8/10 pain in his ankle. His chest is not bothering him that much though. He says the orthopedist, Dr. Powell told him no weightbearing on his ankle. However he has been walking on it. Otherwise he has no complaints. Review of Systems Constitutional: Reports: no symptoms. EENTM: Reports: no symptoms. Cardiovascular: Reports: no symptoms. Respiratory: Reports: no symptoms. Gastrointestinal: Reports: no symptoms. Genitourinary: Reports: no symptoms. Musculoskeletal: Reports: see HPI. Skin: Reports: see HPI. Neurological/Psychological: Reports: no symptoms. Hematologic/Endocrine: Reports: no symptoms. Immunologic/Allergic: Reports: no symptoms. Objective Last 24 Hrs of Vital Signs/I&O Vital Signs Date Time Temp Pulse Resp B/P B/P Pulse O2 O2 Flow FiO2 Mean Ox Delivery Rate 04/19 0340 98.0 88 22 124/70 98 04/18 2340 98.2 82 28 154/84 100 04/18 2018 97.0 78 20 138/78 95 Room Air 04/18 1522 96.2 84 18 131/82 96 Room Air Intake & Output 04/19 1600 04/19 0800 04/19 0000 Intake Total 1100 Output Total 1300 Balance -1300 1100 Intake, IV 1100 Output, Urine 1300 Physical Exam General Appearance: Alert, Oriented X3, Cooperative, No Acute Distress Skin: R chest wall has bandaged wound. L ankle has bandaged wound as well. DP pulses felt bilaterally, no surrounding erythema. Cardiovascular: Regular Rate, Normal S1, Normal S2 Lungs: Clear to Auscultation Abdomen: Normal Bowel Sounds, Soft, No Tenderness Current Medications: Current Medications Sig/Ban Start time Last Medication Dose Route Stop Time Status Admin Acetaminophen 650 MG Q6P PRN 04/18 2145 AC PO Acetaminophen/ 1 TAB Q6P PRN 04/18 2145 DC Hydrocodone Bitart PO Amlodipine Besylate 5 MG DAILY 04/19 1000 AC PO Ampicillin Sodium/ 0 .STK-MED ONE 04/19 0659 DC Sulbactam Sodium .ROUTE Ampicillin Sodium/ 0 .STK-MED ONE 04/19 0015 DC Sulbactam Sodium .ROUTE Ampicillin Sodium/ 1,500 MG Q6 04/18 2359 AC 04/19 Sulbactam Sodium IV 0657 Sodium Chloride 100 ML Ampicillin Sodium/ 0 .STK-MED ONE 04/18 1753 DC Sulbactam Sodium .ROUTE Ampicillin Sodium/ 1,500 MG ONCE ONE 04/18 1745 DC 04/18 Sulbactam Sodium IV 04/18 1814 1816 Sodium Chloride 100 ML Atorvastatin Calcium 10 MG DAILY 04/19 1000 AC PO Enoxaparin Sodium 40 MG DAILY 04/18 2145 AC SC Insulin Aspart 0 TIDAC 04/19 0800 AC SC Lidocaine 0 .STK-MED ONE 04/18 1803 DC .ROUTE Lidocaine 0 .STK-MED ONE 04/18 1739 DC .ROUTE Lisinopril 10 MG DAILY 04/19 1000 AC PO Lorazepam 0 .STK-MED ONE 04/18 2350 DC .ROUTE Lorazepam 1 MG ONCE ONE 04/18 2345 DC 04/18 IV 04/18 2346 2356 Morphine Sulfate 2 MG Q6P PRN 04/18 2330 AC IV Morphine Sulfate 0 .STK-MED ONE 04/18 1900 DC .ROUTE Morphine Sulfate 4 MG ONCE ONE 04/18 1830 DC 04/18 IV 04/18 1831 1901 Oxycodone HCl 0 .STK-MED ONE 04/18 2218 DC PO Oxycodone HCl 10 MG Q6P PRN 04/18 2145 DC PO Oxycodone/ 0 .STK-MED ONE 04/19 0831 DC Acetaminophen PO Oxycodone/ 1 TAB ONCE ONE 04/19 0830 DC 04/19 Acetaminophen PO 04/19 0831 0825 Oxycodone/ 2 TAB Q4P PRN 04/19 0815 AC Acetaminophen PO Oxycodone/ 0 .STK-MED ONE 04/19 0658 DC Acetaminophen PO Oxycodone/ 1 TAB Q6P PRN 04/18 2200 DC 04/19 Acetaminophen PO 0701 Polyethylene Glycol 17 GM AT BEDTIME 04/18 2200 AC 04/18 PO 2215 Senna/Docusate Sodium 1 TAB AT BEDTIME 04/18 2200 AC 04/18 PO 2215 Sodium Chloride 1,000 ML BOLUS ONE 04/18 2145 DC 04/18 IV 04/18 2244 2356 Sodium Chloride 1,000 ML .Q10H 04/18 2145 AC 04/18 IV 04/19 1744 2200 Sodium Chloride 1,000 ML BOLUS ONE 04/18 1745 DC 04/18 IV 04/18 1844 1816 Vancomycin HCl 1,000 MG ONCE ONE 04/18 1900 DC 04/18 Sodium Chloride 250 ML IV 04/18 195 195 Last 24 Hrs of Lab/Rashad Results Last 24 Hrs of Labs/Mics: Laboratory Tests 04/19/17 0430: Anion Gap 10, Estimated GFR > 60, BUN/Creatinine Ratio 22.0, Hemoglobin A1c 6.1 H, 25-OH Vitamin D Total 12.7 L, CBC w Diff NO MAN DIFF REQ, RBC 4.62 L, MCV 93.6, MCH 31.9 H, RDW 13.4, MPV 7.7, Gran % 61.9, Lymphocytes % 28.2, Monocytes % 8.0, Eosinophils % 1.5, Basophils % 0.4, Absolute Granulocytes 5.2, Absolute Lymphocytes 2.4, Absolute Monocytes 0.7 H, Absolute Eosinophils 0.1, Absolute Basophils 0, PUBS MCHC 34.1 04/18/172119: Lactic Acid 1.9 04/18/171809: Anion Gap 13, Estimated GFR > 60, BUN/Creatinine Ratio 25.0, Glucose 114 H, Lactic Acid 2.2 H, Calcium 9.5, Total Bilirubin 0.6, AST 17, ALT 34, Alkaline Phosphatase 54, C-Reactive Prot, Quant 4.6 H, Total Protein 6.9, Albumin 4.3, Globulin 2.6, Albumin/Globulin Ratio 1.7, CBC w Diff NO MAN DIFF REQ, RBC 5.24, MCV 93.9, MCH 31.9 H, RDW 13.5, MPV 8.3, Gran % 65.4, Lymphocytes % 24.2, Monocytes % 8.5, Eosinophils % 1.5, Basophils % 0.4, Absolute Granulocytes 5.4, Absolute Lymphocytes 2.0, Absolute Monocytes 0.7 H, Absolute Eosinophils 0.1, Absolute Basophils 0, PUBS MCHC 34.0, ESR Westergren 23 H Microbiology 04/19 430 BLOOD: Blood Culture - RECD 04/19 415 BLOOD: Blood Culture - RECD Assessment/Plan Assessment: Mr. Durand is a 46 yo male with a hx of DM II, htn, and hyperlipidemia who presented to the ED complaining of abscess and worsening celulitis on the R chest s/p I&D. #Abscess of the R chest wall status post I&D: Seems to be caused by patient picking at it and it developed into an abscess. In the past he has grown MSSA. He is being covered for this now. -F/U wound cultures -Continue Unasyn - monitor spread of erythema, currently outlined with a marker - surgical consult -Consult infectious disease #nonhealing wound on L Lateral ankle: Dr. Powell said this was nonweightbearing according to the patient. Ankle x-rays of subtle lucency along posterior superior access in the calculus attachment of the Achilles of unknown etiology. We will talk to orthopedics today about this. -wound care consult -Follow up with orthopedics -Percocet every 4 h when necessary pain -Morphine 2 mg every 6 hours when necessary pain #DM2 - insulin sliding scale - hold home metformin - Accucheck TID - Diabetic diet #Chronic medical problems: Hypertension, hyperlipidemia -Continue lisinopril, atorvastatin, amlodipine, polyethylene glycol #DVT prophylaxis -enoxaparin #code status -Full code Problem List: 1. Cellulitis 2. Ankle fracture Pain Ratin Pain Location: ANKLE Pain Goal: Remain pain free Pain Plan: SEE A/P Tomorrow's Labs & Rationales: CBC, BEP
--- NOTE | 2017-04-19 09:50 | NUR ---
PT SLEEPING, RESPIRAITONS REGULAR AND NON-LABORED.
--- NOTE | 2017-04-19 10:42 | PN- Student ---
Subjective Subjective: He was drowsy when I went to see him and says that he is feeling well except for his abscesses. His pain level is a 8/10 today. Objective Objective: PE: General appearance: alert and oriented x3, drowsy Lungs: CTA BL Heart: normal s1, s2. No R/M/G. Abd: normal bowel sounds, soft, no tender to palpation skin: Bandage on right chest. Area of erythema marked with marker. Left ankle with bandage. Results Results: Laboratory Tests 04/19/17 043: Anion Gap 10, Estimated GFR > 60, BUN/Creatinine Ratio 22.0, Hemoglobin A1c 6.1 H, 25-OH Vitamin D Total 12.7 L, CBC w Diff NO MAN DIFF REQ, RBC 4.62 L, MCV 93.6, MCH 31.9 H, RDW 13.4, MPV 7.7, Gran % 61.9, Lymphocytes % 28.2, Monocytes % 8.0, Eosinophils % 1.5, Basophils % 0.4, Absolute Granulocytes 5.2, Absolute Lymphocytes 2.4, Absolute Monocytes 0.7 H, Absolute Eosinophils 0.1, Absolute Basophils 0, PUBS MCHC 34.1 04/18/172119: Lactic Acid 1.9 04/18/171809: Anion Gap 13, Estimated GFR > 60, BUN/Creatinine Ratio 25.0, Glucose 114 H, Lactic Acid 2.2 H, Calcium 9.5, Total Bilirubin 0.6, AST 17, ALT 34, Alkaline Phosphatase 54, C-Reactive Prot, Quant 4.6 H, Total Protein 6.9, Albumin 4.3, Globulin 2.6, Albumin/Globulin Ratio 1.7, CBC w Diff NO MAN DIFF REQ, RBC 5.24, MCV 93.9, MCH 31.9 H, RDW 13.5, MPV 8.3, Gran % 65.4, Lymphocytes % 24.2, Monocytes % 8.5, Eosinophils % 1.5, Basophils % 0.4, Absolute Granulocytes 5.4, Absolute Lymphocytes 2.0, Absolute Monocytes 0.7 H, Absolute Eosinophils 0.1, Absolute Basophils 0, PUBS MCHC 34.0, ESR Westergren 23 H Microbiology 04/19 430 BLOOD: Blood Culture - RECD 04/19 415 BLOOD: Blood Culture - RECD Left ankle x-ray: Findings showed subtle lucency along posterior superior access in the calculus attachment of the Achilles of unknown etiology. Assessment/Plan Assessment: Mr. Durand is a 46 yo male with a PMH of MSSA infections, HTN, DM II, and hyperlipidemia who presented with worsening abscess on the right chest that was treated with I/D previously and a nonhealing wound on the left ankle. On presenation, he was hemodynamically stable. Plan: 1) Abscess in the right chest which has been though I/D: Patient claims to pick at skin which has led to an abscess. He has a PMH of MSSA. -F/U wound cultures -Continue Unasyn 1500mg q6h IV -monitor spread of erythema, currently outlined with a marker -surgical consult -ID Consult 2) Nonhealing wound on left lateral ankle: Nonweight bearing status determine by Dr. Powell according to the patient. Discuss the ankle x-rays with Ortho. Findings showed subtle lucency along posterior superior access in the calculus attachment of the Achilles of unknown etiology. -wound care consult -Follow up with orthopedics -Percocet q4 h PRN -Morphine 2 mg q6h PRN 3) Chronic conditions: Hypertension, hyperlipidemia, DM: -Continue lisinopril, atorvastatin, amlodipine, polyethylene glycolDM2 -insulin sliding scale -hold home metformin -Accucheck TID -Diabetic diet 4)DVT prophylaxis -enoxaparin 5)code status -Full code
--- NOTE | 2017-04-19 11:35 | NUR ---
IPOC PART 1 AND 11 COMPLETED.
--- NOTE | 2017-04-19 11:56 | NUR ---
PT DOES NOT WANT MEAL TRAY, HAD SAME FOOD YESTERDAY. DIETARY CALLED, TURKEY SANDWICH ORDERED.
--- NOTE | 2017-04-19 12:18 | NUR ---
pt awaiting private room due to +mrsa swab
--- NOTE | 2017-04-19 12:29 | NUR ---
MEDICATED FPR AMLE PAIN WITH PERCOCET 2 PO.
--- NOTE | 2017-04-19 13:20 | NUR ---
SECOND CALL TO DIETARY FOR FOOD TRAY.
--- NOTE | 2017-04-19 15:45 | NUR ---
ASSUMED CARE OF PT WHO IS SLEEPING AT THIS TIME WITH REGULAR RESPIRATIONS AND EQUAL CHEST RISE AND FALL NOTED
--- NOTE | 2017-04-19 16:46 | NUR ---
PT REQUESTING PAIN MEDICATION. PRN ORDER FOR PERCOCET. STATES MEDICATION WORKS WELL FOR HIM. MEDICATED WITH SAME. ANTIBIOTIC INFUSION COMPLETE. PT ASKING FOR IV TO BE D/TRISHA IT IS IN LAC AND HURTS WITH MOVEMENT OF ARM. NO REDNESS OR SIGNS OF INFILTRATION NOTED. IV REMOVED PER PT REQUEST NEW IV PLACED TO L HAND. NORMAL SALINE INFUSING PER NOV. DRESSING IN PLACE TO CHEST. REDNESS TO CHEST WITH AREA MARKED BY PEN. STATES MARKING WAS DONE YESTERDAY. REDNESS EXTENDS SLIGHLTY PAST MARKED BORDERS BUT PT STATES APPEARS LESS BRIGHT RED. AWARE HE IS WAITING ON BED ASSIGNMENT. MENU PROVIDED FOR PT TO ORDER MEAL.
--- NOTE | 2017-04-19 16:58 | NUR ---
DINNER ORDERED PER REQUEST - GRILLED CHEESE WITH SHEPPARD AND TOMATO / DIET CHOCOLATE PUDDING / DIET MELLY FIDEL. PT PLEASANT, COOPERATIVE. DENIES NEEDING ANYTHING AT THIS TIME
--- NOTE | 2017-04-19 17:08 | NUR ---
PT ASSIGNED TO 228-1
--- NOTE | 2017-04-19 17:30 | NUR ---
FINGERSTICK 114 - NO COVERAGE NEEDED TRAY PROVIDED
--- NOTE | 2017-04-19 17:43 | NUR ---
228 NOT CLEAN - FLOOR TO CALL BACK FOR REPORT PT AWARE OF SAME.
--- NOTE | 2017-04-19 18:18 | NUR ---
REPORT GIVEN TO STEVIE ON [facility] FLOOR WILL CALL WHEN ROOM IS CLEAN
[2017-04-19 22:11] VITALS: BP 150/70
--- NOTE | 2017-04-19 22:59 | NUR ---
PATIENT TRANSFERRED TO FLOOR AROUND 1999. PATIENT ALERT AND ORIENTED X 3. TRANSFERRED TO BED INDEPENDENTLY WITH CRUSHES. OPEN AREAS TO RIGHT CHEST. WOUND TO LEFT LATERAL LOWER EXTREMITY. SEE WOUND MEASUREMENT IN WOUND/SKIN MAN. PT C/O PAIN OF 8/10. PAIN MEDICATIONS GIVEN ORDERED. CLL LIGHT WITHIN REACH.
[2017-04-20 06:30] VITALS: BP 152/90
--- NOTE | 2017-04-20 07:04 | PN- Student ---
Subjective Subjective: His pain level is 1/10 today and he did not have any spikes in fever overnight. He slept well and has been eating well. He denies any chest pain, palpitations, SOB, nausea, vomiting, diarrhea, or fever. Objective Objective: PE: vitals: WNL Lungs: CTA BL CV: nomal S1, S2, no R/M/G Skin: Erythema is within the marking on the right chest. left ankle has a bandage on it. Results Results: Laboratory Tests 04/19/17 043: Anion Gap 10, Estimated GFR > 60, BUN/Creatinine Ratio 22.0, Hemoglobin A1c 6.1 H, 25-OH Vitamin D Total 12.7 L, CBC w Diff NO MAN DIFF REQ, RBC 4.62 L, MCV 93.6, MCH 31.9 H, RDW 13.4, MPV 7.7, Gran % 61.9, Lymphocytes % 28.2, Monocytes % 8.0, Eosinophils % 1.5, Basophils % 0.4, Absolute Granulocytes 5.2, Absolute Lymphocytes 2.4, Absolute Monocytes 0.7 H, Absolute Eosinophils 0.1, Absolute Basophils 0, PUBS MCHC 34.1 04/18/172119: Lactic Acid 1.9 04/18/170: Anion Gap 13, Estimated GFR > 60, BUN/Creatinine Ratio 25.0, Glucose 114 H, Lactic Acid 2.2 H, Calcium 9.5, Total Bilirubin 0.6, AST 17, ALT 34, Alkaline Phosphatase 54, C-Reactive Prot, Quant 4.6 H, Total Protein 6.9, Albumin 4.3, Globulin 2.6, Albumin/Globulin Ratio 1.7, CBC w Diff NO MAN DIFF REQ, RBC 5.24, MCV 93.9, MCH 31.9 H, RDW 13.5, MPV 8.3, Gran % 65.4, Lymphocytes % 24.2, Monocytes % 8.5, Eosinophils % 1.5, Basophils % 0.4, Absolute Granulocytes 5.4, Absolute Lymphocytes 2.0, Absolute Monocytes 0.7 H, Absolute Eosinophils 0.1, Absolute Basophils 0, PUBS MCHC 34.0, ESR Westergren 23 H Microbiology 04/19 430 BLOOD: Blood Culture - RECD 04/19 415 BLOOD: Blood Culture - RECD Wound culture: MRSA sensitive to clindymycin, bactrim, and vanco. Assessment/Plan Assessment: Mr. Durand is a 46 yo male with a PMH of MSSA infections, HTN, DM II, and hyperlipidemia who presented with worsening abscess on the right chest that was treated with I/D previously and a nonhealing wound on the left ankle. His culture is MRSA postive and he is currently hemodynamically stable. Plan: 1) Abscess in the right chest which has been though I/D: Patient claims to pick at skin which has led to an abscess. His culture is postive for MRSA -Transition Vancomycin 1500mg/ 250mL q12h IV to bactirum and ampicillin -monitor spread of erythema, currently outlined with a marker -surgical consult -ID Consult -possible discharge today 2) Nonhealing wound on left lateral ankle: Nonweight bearing status determined by Dr. Powell according to the patient. Discuss the ankle x-rays with Ortho. Findings showed subtle lucency along posterior superior access in the calculus attachment of the Achilles of unknown etiology. -wound care consult -Follow up with orthopedics -Percocet q4 h PRN -Morphine 2 mg q6h PRN 3) Chronic conditions: Hypertension, hyperlipidemia, DM: -Continue lisinopril, atorvastatin, amlodipine, polyethylene glycolDM2 -insulin sliding scale -hold home metformin -Accucheck TID -Diabetic diet 4)DVT prophylaxis -enoxaparin 5)code status -Full code
--- NOTE | 2017-04-20 08:04 | PN- Housestaff ---
See Addendum Subjective Follow-up For: cellulitis Subjective: No overnight events. He slept well, feels better today. Pain 2/10 in ankle, meds wear off after 3-4 hours but provide good relief. No other complaints. Review of Systems Constitutional: Reports: no symptoms. EENTM: Reports: no symptoms. Cardiovascular: Reports: no symptoms. Respiratory: Reports: no symptoms. Gastrointestinal: Reports: no symptoms. Genitourinary: Reports: no symptoms. Musculoskeletal: Reports: see HPI. Skin: Reports: see HPI. Neurological/Psychological: Reports: no symptoms. Hematologic/Endocrine: Reports: no symptoms. Immunologic/Allergic: Reports: no symptoms. Objective Last 24 Hrs of Vital Signs/I&O Vital Signs Date Time Temp Pulse Resp B/P B/P Pulse O2 O2 Flow FiO2 Mean Ox Delivery Rate 04/20 0630 98.2 81 20 152/90 97 Room Air 04/19 2211 98.0 75 20 150/70 96 Room Air 04/19 1648 98.1 76 18 137/93 98 Room Air 04/19 1454 98.4 76 16 134/77 98 Room Air 04/19 1211 84 18 102/68 04/19 1134 84 18 108/62 04/19 1134 97.7 84 20 108/72 99 Room Air Intake & Output 04/20 1600 04/20 0800 04/20 0000 Intake Total 400 480 Output Total 1300 400 Balance -900 80 Intake, IV 280 Intake, Oral 120 480 Number 1 Bowel Movements Output, Urine 1300 400 Physical Exam General Appearance: Alert, Oriented X3, Cooperative, No Acute Distress Skin: Right chest wall with sveral scabs, including 2 wounds draining pus with erythema and induration. Cardiovascular: Regular Rate, Normal S1, Normal S2 Lungs: Clear to Auscultation Abdomen: Normal Bowel Sounds, Soft, No Tenderness Extremities: L ankle in wrap Current Medications: Current Medications Sig/Ban Start time Last Medication Dose Route Stop Time Status Admin Acetaminophen 650 MG Q6P PRN 04/18 2145 AC PO Amlodipine Besylate 5 MG DAILY 04/19 1000 AC 04/19 PO 1134 Ampicillin Sodium/ 1,500 MG Q6 04/18 2359 DC 04/19 Sulbactam Sodium IV 1228 Sodium Chloride 100 ML Atorvastatin Calcium 10 MG DAILY 04/19 1000 AC 04/19 PO 1133 Cholecalciferol 1,000 IU DAILY 04/19 1015 AC 04/19 PO 1211 Enoxaparin Sodium 40 MG DAILY 04/18 2145 AC 04/19 SC 1133 Insulin Aspart 0 TIDAC 04/19 0800 AC 04/19 SC 1235 Lisinopril 10 MG DAILY 04/19 1000 AC 04/19 PO 1211 Morphine Sulfate 2 MG Q6P PRN 04/18 2330 AC IV Oxycodone/ 0 .STK-MED ONE 04/19 1639 DC Acetaminophen PO Oxycodone/ 0 .STK-MED ONE 04/19 1224 DC Acetaminophen PO Oxycodone/ 0 .STK-MED ONE 04/19 0831 DC Acetaminophen PO Oxycodone/ 1 TAB ONCE ONE 04/19 0830 DC 04/19 Acetaminophen PO 04/19 0831 0825 Oxycodone/ 2 TAB Q4P PRN 04/19 0815 AC 04/20 Acetaminophen PO 0606 Oxycodone/ 1 TAB Q6P PRN 04/18 2200 DC 04/19 Acetaminophen PO 0701 Polyethylene Glycol 17 GM AT BEDTIME 04/18 2200 AC 04/18 PO 2215 Senna/Docusate Sodium 1 TAB AT BEDTIME 04/18 2200 AC 04/18 PO 2215 Sodium Chloride 1,000 ML .Q10H 04/18 2145 DC 04/19 IV 04/19 1744 1030 Vancomycin HCl 1,500 MG Q12H 04/19 1500 AC 04/20 Sodium Chloride 250 ML IV 0309 Assessment/Plan Assessment: Mr. Durand is a 46 yo male with a hx of DM II, htn, and hyperlipidemia who presented to the ED complaining of abscess and worsening celulitis on the R chest s/p I&D. #Abscess of the R chest wall status post I&D: Yesterday his wound culture came back growing MRSA. He has been switched to vancomycin. He is continuing to improve. No fever or leukocytosis. He may be able to go home on Bactrim. -Continue vancomycin 1.5 g twice a day #nonhealing wound on L Lateral ankle: Dr. Powell said this was nonweightbearing. Ankle x-rays of subtle lucency along posterior superior access in the calculus attachment of the Achilles of unknown etiology. Dr. Powell ssaid not to worry about this. -wound care consult -Acetaminophen -Percocet every 4 h when necessary pain -Morphine 2 mg every 6 hours when necessary pain #DM2 - insulin sliding scale - hold home metformin - Accucheck TID - Diabetic diet #Chronic medical problems: Hypertension, hyperlipidemia -Continue lisinopril, atorvastatin, amlodipine, polyethylene glyco, senna l #DVT prophylaxis -enoxaparin #code status -Full code Problem List: 1. Cellulitis 2. Ankle fracture Pain Ratin Pain Location: ankle Pain Goal: Remain pain free Pain Plan: see a/p Tomorrow's Labs & Rationales: none if discharge today Consulting Request: Consulting Specialty: General Surgery
--- NOTE | 2017-04-20 08:05 | Discharge Summary ---
Visit Information Visit Dates Admission Date: 04/18/17 Discharge Date: 04/20/17 Hospital Course Course Attending Physician: MARQUISE GAMEZ MD Primary Care Physician: SHELBY NGUYEN,WILLIE Wong Consulting Request: Consulting Specialty: General Surgery Hospital Course: Mr. Durand is a 46 yo male with a hx of DM II, htn, and hyperlipidemia who presented to the ED complaining of abscess and worsening celulitis on the R chest s/p I&D. On arrival to the ED, his vital signs were T 96.2, HR 84, RR 18, BP 131/82, satting 96% on room air. Labs are notable for no leukocytosis, ESR 23, lactic acid 2.2, CRP 4.6. he was started on Unasyn for presumed MSSA abscess status post I&D. #Abscess of the R chest wall status post I&D: On arrival he was started on Unasyn for presumed MSSA colonization. However his wound culture came back growing MRSA so he was switched to vancomycin. He is continued to improve on this and has never been febrile or had leukocytosis. He is being discharged on clindamycin and to continue this for 10 more days. He should follow up with his PCP, Dr. Nguyen, and Dr. Michel in 1 week. #nonhealing wound on L Lateral ankle: Status post ankle surgery earlier this spring. This was post to be grafted by the plastic surgeon, however he wanted the chest wall infection to be resolved first. Dr. Powell said this was nonweightbearing. Ankle x-rays of subtle lucency along posterior superior access in the calculus attachment of the Achilles of unknown etiology. Dr. Powell ssaid not to worry about this. He should follow up with the plastic surgeon and Dr. Nguyen for further care. #DM2: Oral hypoglycemics were held and he was placed on insulin sliding scale. He should continue a diabetic diet going forward. #Chronic medical problems: Hypertension, hyperlipidemia: The following medications were continued -Continue lisinopril, atorvastatin, amlodipine, polyethylene glyco, senna Allergies: Coded Allergies: NO KNOWN ALLERGIES (11/14/16) Disposition Summary Disposition Principal Diagnosis: Chest wall cellulitis status post incision and drainage Additional Diagnosis: Left ankle fracture status post surgical repair with open wound Discharge Disposition: home health services Discharge Instructions General Discharge Information Code Status: Full Code Patient's Diet: Diabetic diet Patient's Activity: Nonweightbearing on the left foot. Otherwise as tolerated Follow-Up Instructions/Appts: Please follow-up with Dr. Powell and Dr. Michel in 1 week. Please follow up with your PCP in 1-2 weeks. Please take all medications as directed. Medications at Discharge Discharge Medications: Continue taking these medications: Metformin HCl (Metformin HCl ER) 500 MG TAB.ER.24H 1 Tablet ORAL TWICE DAILY Qty = 60 Comments: NOT GIVEN IN HOSPITAL Amlodipine Besylate/Benazepril (Amlodipine-Benazepril 5-10 MG) 5 MG-10 MG CAPSULE 1 Capsule ORAL DAILY Comments: Last Taken: 01/31/17 Time: 0745AM Oxycodone HCl/Acetaminophen (Oxycodone-Acetaminophen 5-325) 5 MG-325 MG TABLET 1-2 Tablet ORAL Q4H Qty = 84 Atorvastatin Calcium (Atorvastatin Calcium) 10 MG TABLET 1 Tablet ORAL DAILY Qty = 90 Ibuprofen (Ibuprofen) 800 MG TABLET 1 Tablet ORAL as needed for PAIN Qty = 90 Start taking the following new medications: Clindamycin HCl (Cleocin HCl) 300 MG CAPSULE 1 Capsule ORAL 4 TIMES A DAY Qty = 40 No Refills Instructions: . Copies To: SHELBY NGUYEN,WILLIE Wong; JENNIFER NGUYEN,DAIJA Barrera; RALF NGUYEN,AWILDA
[2017-04-20] MEDS ORDERED: AUGMENTIN 875-1 EACH PO ×2 (08:49→08:52)
[2017-04-20] MEDS ORDERED: BACTRIM DS TAB1 EACH PO ×2 (08:50→08:52)
[2017-04-20 09:11] LABS: ABSOLUTE BASOPHIL COUNT 0 /CUMM (0.0-0.2); ABSOLUTE EOSINOPHIL COUNT 0.1 /CUMM (0.0-0.7); ABSOLUTE GRANULOCYTE CT 4.3 /CUMM (1.4-6.5); ABSOLUTE LYMPH COUNT 1.9 /CUMM (1.2-3.4); ABSOLUTE MONOCYTE COUNT 0.5 /CUMM (0.10-0.60); BASOPHIL % 0.4 % (0.0-2.0); EOSINOPHIL % 1.3 % (0-5); GRANULOCYTE % 63.1 % (42.2-75.2); HEMATOCRIT 46.8 % (42-52); MEAN CORPUSCULAR HGB 31.9 PG (27.0-31.0); MEAN CORPUSCULAR VOLUME 93.9 FL (80.0-94.0); MEAN PLATELET VOLUME 7.8 FL (7.4-10.4); PLATELET COUNT 177 /CUMM (130-400); RED BLOOD CELL CT 4.99 /CUMM (4.70-6.10); WHITE BLOOD CELL COUNT 6.9 /CUMM (4.8-10.8)
[2017-04-20] MEDS ORDERED: CLEOCIN HCL300 M1 PO ×2 (11:09→13:50)
--- NOTE | 2017-04-20 11:16 | Patient Discharge Instructions ---
Discharge Instructions General Discharge Information You were seen/treated for: Skin infection (cellulitis) Methicillin-resistant staph aureus (MRSA): Skin infection Watch for these problems: Increase redness, Swelling or drainage from the site. Fevers, chills, nausea, vomiting Special Instructions: Please take all medications as directed. Please follow-up with your surgeon at the next scheduled appointment Activity Full Activity/No Limits: Yes Activity Self Limited: Yes Other activity limits: Nonweight bearing on your left foot Acute Coronary Syndrome Inclusion Criteria At DC or during hospital stay patient has or had the following: ACS DIAGNOSIS No Discharge Core Measures Meds if any: Prescribed or Continued at Discharge Meds if any: NOT Prescribed or Continued at Discharge Congestive Heart Failure Inclusion Criteria At DC or during hospital stay patient has or had the following: CHF DIAGNOSIS No Discharge Core Measures Meds if any: Prescribed or Continued at Discharge Meds if any: NOT Prescribed or Continued at Discharge Cerebrovascular accident Inclusion Criteria At DC or during hospital stay patient has or had the following: CVA/TIA Diagnosis No Discharge Core Measures Meds if any: Prescribed or Continued at Discharge Meds if any: NOT Prescribed or Continued at Discharge Venous thromboembolism Inclusion Criteria VTE Diagnosis No VTE Type NONE VTE Confirmed by (Test) NONE Discharge Core Measures - Per Current guidelines, there needs to be overlap - treatment for the first 5 days of Warfarin therapy. - If discharged on Warfarin prior to 5 days of - overlap therapy, the patient will need to be - assessed for post discharge needs including - *Post discharge parental anticoagulation - *Warfarin and/or parental anticoagulation education - *Follow up date to check INR post discharge At least 5 days overlap therapy as Inpatient No Meds if any: Prescribed or Continued at Discharge Note: Overlap Therapy is Warfarin and Anticoagulant Meds if any: NOT Prescribed or Continued at Discharge
[2017-04-20 14:51] VITALS: BP 144/80
--- NOTE | 2017-04-20 15:02 | NUR ---
WOUND CARE: DISCUSSED POC WITH DR GAMEZ AND ? IF PT REQUIRES A WOUND EVAL FROM THIS [employer]CH[employer]IC APPRENTICE - PER , PT DOES NOT REQUIRE EVALUATION AT THIS TIME, AND HE IS TO BE DC
== END 2017-04-20 16:00 | disposition home health service (06) | DRG 603 ==
LOC: ERH 14:54 → 2NA 18:58 → ERHI 18:58 → ENRESERV 04-19 12:01 → CANRESERV 04-19 12:01 → ERHI 04-19 15:09 → ENRESERV 04-19 16:57 → ENTRNSPT 04-19 19:51 → EDTRNSPTSTS 04-19 19:53 → 2NA 04-19 20:00 → CMPTRNSPT 04-19 20:13 → ENPENDDIS 04-20 14:02 → 2NA 04-20 16:00
PROVIDERS: Internal Medicine; Physician Assistant; Student in an Organized Health Care Education/Training Program; ADMIT Student in an Organized Health Care Education/Training Program
DX: L03.313 Cellulitis of chest wall (principal); E87.2 Acidosis; T81.89XA Other complications of procedures, not elsewhere classified, initial encounter; B95.62 Methicillin resistant Staphylococcus aureus infection as the cause of diseases classified elsewhere; E11.9 Type 2 diabetes mellitus without complications; I10 Essential (primary) hypertension; Z79.84 Long term (current) use of oral hypoglycemic drugs; E78.5 Hyperlipidemia, unspecified; Y83.8 Other surgical procedures as the cause of abnormal reaction of the patient, or of later complication, without mention of misadventure at the time of the procedure; Z87.81 Personal history of (healed) traumatic fracture
CPT/HCPCS: 2NAP; 87184; ERO; 36415; 73610-LT; 82436; 87040; 87070; 87147; 96374; J1650; J3370; J7040

== ENCOUNTER 2018-03-13 19:23 | Emergency (ER) | payer OTHER, MEDICARE ==
[~2018-03-13] VITALS: Ht 177.8 cm; Wt 120.2 kg
[~2018-03-13 19:23] MED LIST changes: +AMOXICILLIN500 M3 PO; +ATORVASTATIN CA10 M1 PO; +CLEOCIN HCL300 M1 PO; +IBUPROFEN800 M1 PO; +OXYCODONE-ACET1 EACH PO
--- NOTE | 2018-03-13 21:06 | ED SKIN/ALLERGY COMPLAINT ---
History of Present Illness General Chief Complaint: Skin Rash/ Abcess Stated Complaint: ?ABCESS ON BACK OF HEAD Source: patient Exam Limitations: no limitations Vital Signs & Intake/Output Vital Signs & Intake/Output Vital Signs Date Time Temp Pulse Resp B/P B/P Pulse O2 O2 Flow FiO2 Mean Ox Delivery Rate 03/131 98.3 92 16 127/84 99 Room Air 03/13 1933 97.4 102 18 130/81 97 Room Air Allergies Coded Allergies: NO KNOWN ALLERGIES (11/14/16) Reconcile Medications Amlodipine Besylate/Benazepril (Amlodipine-Benazepril 5-10 MG) 5 MG-10 MG CAPSULE 1 CAP PO DAILY HTN (Reported) Amoxicillin 500 MG TABLET 1 TAB PO TID cellulitis Amoxicillin 875 MG TABLET 1 TAB PO BID cellulitis Atorvastatin Calcium 10 MG TABLET 1 TAB PO DAILY CHOLESTEROL (Reported) Clindamycin HCl (Cleocin HCl) 300 MG CAPSULE 1 CAP PO 4 TIMES/DAY CELLULITIS . Ibuprofen 800 MG TABLET 1 TAB PO PRN PAIN (Reported) Metformin HCl (Metformin HCl ER) 500 MG TAB.ER.24H 1 TAB PO BID DM (Reported) Oxycodone HCl/Acetaminophen (Oxycodone-Acetaminophen 5-325) 5 MG-325 MG TABLET 1-2 TAB PO Q4H PAIN (Reported) Sulfamethoxazole/Trimethoprim (Bactrim Ds Tablet) 800 MG-160 MG TABLET 1 TAB PO BID cellulitis Sulfamethoxazole/Trimethoprim (Bactrim Ds Tablet) 800 MG-160 MG TABLET 1 TAB PO BID cellulitis Triage Note: PT TO ER C/C ?ABSCESS TO BACK OF HEAD X 1-2 WEEKS, GETTING LARGER. AFEBRILE. Triage Nurses Notes Reviewed? yes Onset: Gradual Duration: week(s): Timing: recent history Severity: moderate Location: scalp HPI: 47YO MALE with hx of DM presents to ED complaining of possible abscess to posterior scalp x few weeks. Patient statse he had a pimple to this area which he was trying to pop however it never healed fully. Patient states the area graudaully worsened and increased in size. Patient has histrory of abscesses in the past. The patient denies fevers, chills, abdominal pain, nausea, vomiting. (Renetta MILLER,Odalis Singh) Past History Travel History Traveled to [place] past 21 day No Medical History Any Pertinent Medical History? see below for history Neurological: NONE EENT: NONE Cardiovascular: hypertension, hyperlipidemia Respiratory: bronchitis Gastrointestinal: NONE Hepatic: NONE Renal: NONE Musculoskeletal: chronic back pain Psychiatric: NONE Endocrine: diabetes Blood Disorders: NONE Cancer(s): NONE CARE TRAINER/Reproductive: NONE History of MRSA: Yes History of VRE: No History of CDIFF: No Surgical History Surgical History: BACK SX 2006 and 2007 removal of hardware left ankle See HPI ORIF left ankle November 2016 ORIF L lower leg to repair fracture 11/2016, resulted in chronic open wound Psychosocial History Who do you live with Family Services at Home None What is your primary language Bengali Tobacco Use: Current Daily Use Daily Tobacco Use Amount/Type: => 5 Cigarettes daily Family History Family History, If Any: FATHER Relation not specified for: Coronary artery disease Hx Contributory? No (Odalis Gordon) Review of Systems Review of Systems Constitutional: Reports: no symptoms. EENTM: Reports: no symptoms. Respiratory: Reports: no symptoms. Cardiovascular: Reports: no symptoms. GI: Reports: no symptoms. Genitourinary: Reports: no symptoms. Musculoskeletal: Reports: no symptoms. Skin: Reports: see HPI. Neurological/Psychological: Reports: no symptoms. Hematologic/Endocrine: Reports: no symptoms. Immunologic/Allergic: Reports: no symptoms. All Other Systems: Reviewed and Negative (Odalis Gordon) Physical Exam Physical Exam General Appearance: well developed/nourished, no apparent distress, alert, awake Head: 3x4cm area of erythema, induration, tenderness to occipital scalp without fluctuance Eyes: Bilateral: normal appearance. Ears, Nose, Throat: hearing grossly normal Neck: normal inspection, supple, full range of motion, no LAD Respiratory: no respiratory distress Back: normal inspection, normal range of motion Extremities: normal inspection, normal range of motion Neurologic/Psych: awake, alert, oriented x 3 Skin: see scalp exam as mentioned above (Odalis Gordon) Progress Differential Diagnosis: abscess/cellulitis, allergic reaction, drug reaction, urticaria Plan of Care: Patient has area of cellulitis with induration however there is no fluctuance, no area to perform I&D at this time. Patient to begin antibiotics and apply warm compresses. He was given a referral to a general surgery for possible abscess drainage. In no acute distress, nontoxic appearing, vital signs are stable. Discussed this patient with Dr. Lezama who agrees with the plan of care. (Odalis Gordon) Departure Departure Disposition: HOME OR SELF CARE Condition: Stable Clinical Impression Primary Impression: Cellulitis of scalp Referrals: Franco NGUYEN,Babak Wong (PCP/Family) Ravin GNUYEN,Medhat Tesfaye Additional Instructions: Take antibiotics as prescribed. Apply warm compresses at least twice daily. Follow up with general surgeon regarding her possible scalp abscess. If you develop worsening symptoms or concerns please return here to the emergency department. Please note that there might be incidental findings in your evaluation that are unrelated to the current emergency department visit. Please notify your primary care doctor about this emergency department visit in order to obtain and review all of the testing performed so that these incidental findings can be monitored as needed. If you had an x-ray performed, please understand that some fractures may not be seen on the initial set of x-rays. If your symptoms persist you might need a repeat set of x-rays to check for such a fracture. If you had a laceration evaluated, please understand that foreign bodies such as glass or wood may not be visible to the naked eye or on plain x-rays. If the wound becomes red, swollen, increasingly more painful or if there is any drainage from the wound, please have it reevaluated by a physician for the possibility of a retained foreign body. If you're unable to follow up as outlined in the discharge instructions please return to the emergency department. Thank you for choosing the [facility] Emergency Department for your care. It was a pleasure to serve you today. Departure Forms: Customer Survey General Discharge Information Prescriptions: Current Visit Scripts Sulfamethoxazole/Trimethoprim (Bactrim Ds Tablet) 1 TAB PO BID #20 TAB Amoxicillin 1 TAB PO BID #20 TAB (Odalis Gordon) PA/OIL AND GAS LEASE PUMPER Co-Sign Statement Statement: ED Attending supervision documentation- I saw and evaluated the patient. I have also reviewed all the pertinent lab results and diagnostic results. I agree with the findings and the plan of care as documented in the PA's/OIL AND GAS LEASE PUMPER's documentation. x I have reviewed the ED Record and agree with the PA's/OIL AND GAS LEASE PUMPER's documentation. [] Additions or exceptions (if any) to the PAs/OIL AND GAS LEASE PUMPER's note and plan are summarized below: [] (Teja NGUYEN,Luis)
[2018-03-13] MEDS ORDERED: AMOXICILLIN875 M1 PO (21:17)
[2018-03-13] MEDS ORDERED: BACTRIM DS TAB1 EACH PO (21:17)
[2018-03-13 21:41] VITALS: BP 127/84
== END 2018-03-13 21:42 ==
LOC: ERH 19:23
DX: L03.811 Cellulitis of head [any part, except face] (principal)

== ENCOUNTER 2018-03-15 22:14 | Emergency (ER) | payer OTHER, MEDICARE ==
[~2018-03-15] VITALS: Ht 177.8 cm; Wt 120.2 kg
[~2018-03-15 22:14] MED LIST changes: +AMOXICILLIN875 M1 PO
--- NOTE | 2018-03-16 00:47 | ED GENERAL ADULT ---
History of Present Illness General Chief Complaint: General Adult Stated Complaint: "ABCESS ON BACK OF HEAD PAINFULL" Source: patient Exam Limitations: no limitations Vital Signs & Intake/Output Vital Signs & Intake/Output Vital Signs Date Time Temp Pulse Resp B/P B/P Pulse O2 O2 Flow FiO2 Mean Ox Delivery Rate 03/16 0104 97.7 89 18 140/77 99 Room Air 03/16 0051 Room Air 03/15 2226 97.9 85 18 148/80 96 Room Air ED Intake and Output 03/16 0000 03/15 1200 Intake Total Output Total Balance Patient 265 lb Weight Weight Reported by Patient Measurement Method Allergies Coded Allergies: NO KNOWN ALLERGIES (11/14/16) Reconcile Medications Amlodipine Besylate/Benazepril (Amlodipine-Benazepril 5-10 MG) 5 MG-10 MG CAPSULE 1 CAP PO DAILY HTN (Reported) Amoxicillin 500 MG TABLET 1 TAB PO TID cellulitis Amoxicillin 875 MG TABLET 1 TAB PO BID cellulitis Atorvastatin Calcium 10 MG TABLET 1 TAB PO DAILY CHOLESTEROL (Reported) Cephalexin (Keflex) 500 MG CAPSULE 1 CAP PO 4 TIMES/DAY INFECTION Clindamycin HCl (Cleocin HCl) 300 MG CAPSULE 1 CAP PO 4 TIMES/DAY CELLULITIS . Ibuprofen 800 MG TABLET 1 TAB PO PRN PAIN (Reported) Metformin HCl (Metformin HCl ER) 500 MG TAB.ER.24H 1 TAB PO BID DM (Reported) Oxycodone HCl/Acetaminophen (Oxycodone-Acetaminophen 5-325) 5 MG-325 MG TABLET 1-2 TAB PO Q4H PAIN (Reported) Oxycodone HCl/Acetaminophen (Percocet 5-325 MG Tablet) 5 MG-325 MG TABLET 1-2 TAB PO 4XDP PRN PAIN TEN...[id number] Sulfamethoxazole/Trimethoprim (Bactrim Ds Tablet) 800 MG-160 MG TABLET 1 TAB PO BID cellulitis Sulfamethoxazole/Trimethoprim (Bactrim Ds Tablet) 800 MG-160 MG TABLET 1 TAB PO BID cellulitis Triage Note: PT FROM HOME C/O ABCESS TO THE TOP OF PTS HEAD, PT WAS SEEN HERE SUNDAY NIGHT FOR ABCESS TO HEAD, PT GIVEN ANTIBIOTICS. PT STATES NO RELIEF AND TODAY WORSE IN PAIN 8/10. PTS VSS, NO DISTRESS NOTED. Triage Nurses Notes Reviewed? yes Onset: Gradual Duration: day(s): Timing: recent history Injury Environment: home Severity: mild, moderate Modifying Factors: Improves With: rest. Worsens With: medication, movement. HPI: 47 YO GENTLEMAN, h/o diabetes, presents for follow up of an infection on his occiput. He notes that he has taken 5 pills of the bactrim ds and amox each. "It still hurts." He notes no increased swelling, no discharge or fever. He is otherwise well. Past History Travel History Traveled to [place] past 21 day No Medical History Any Pertinent Medical History? see below for history Neurological: NONE EENT: NONE Cardiovascular: hypertension, hyperlipidemia Respiratory: bronchitis Gastrointestinal: NONE Hepatic: NONE Renal: NONE Musculoskeletal: chronic back pain Psychiatric: NONE Endocrine: diabetes Blood Disorders: NONE Cancer(s): NONE RN CARDIOVASCULAR ICU/Reproductive: NONE History of MRSA: Yes History of VRE: No History of CDIFF: No Surgical History Surgical History: BACK SX 2006 and 2007 removal of hardware left ankle See HPI ORIF left ankle November 2016 ORIF L lower leg to repair fracture 11/2016, resulted in chronic open wound Psychosocial History Who do you live with Family Services at Home None What is your primary language [place] Tobacco Use: Current Daily Use Daily Tobacco Use Amount/Type: => 5 Cigarettes daily Family History Family History, If Any: FATHER Relation not specified for: Coronary artery disease Hx Contributory? No Review of Systems Review of Systems Constitutional: Denies: see HPI. Physical Exam Physical Exam General Appearance: well developed/nourished, mild distress Head: occiput with 5x6 cm area of firmness, tenderness, without fluctuance. Eyes: Bilateral: normal appearance. Ears, Nose, Throat: normal pharynx, normal ENT inspection Neck: normal inspection, supple, full range of motion Respiratory: no respiratory distress Back: normal inspection, normal range of motion Extremities: normal inspection, normal capillary refill Neurologic/Psych: no motor/sensory deficits, awake, alert, oriented x 3 Skin: intact, normal color, warm/dry Core Measures ACS in differential dx? No CVA/TIA Diagnosis: No Sepsis Present: No Sepsis Focused Exam Completed? No Progress Differential Diagnoses I considered the following diagnoses in my evaluation of the patient: Plan of Care: see below Initial ED EKG: none Departure Departure Disposition: HOME OR SELF CARE Condition: Stable Clinical Impression Primary Impression: Cellulitis Referrals: Franco NGUYEN,Babak Wong (PCP/Family) Departure Forms: Customer Survey General Discharge Information Prescriptions: Current Visit Scripts Cephalexin (Keflex) 1 CAP PO 4 TIMES/DAY #40 CAP Oxycodone HCl/Acetaminophen (Percocet 5-325 MG Tablet) 1-2 TAB PO 4XDP PRN PAIN #10 TAB TEN...[id number] Comments discussed at length with patient.... will change from amox bid to keflex qid... pt to see me in 2 days for recheck, sooner if his symptoms worsen. Critical Care Note Critical Care Note Critical Care Time: non-applicable
[2018-03-16 01:04] VITALS: BP 140/77
[2018-03-16] MEDS ORDERED: KEFLEX500 M1 PO (01:06)
[2018-03-16] MEDS ORDERED: PERCOCET 5-3251 EACH PO (01:07)
== END 2018-03-16 01:15 ==
LOC: ERH 22:14
DX: L03.811 Cellulitis of head [any part, except face] (principal)